=== PATIENT | male | born 1970 | race Caucasian/White ===

== ENCOUNTER 2017-07-14 01:40 | Emergency (ER) | payer BC, MEDICAID, OTHER ==
[2017-07-14 01:50] VITALS: BP 136/79
--- NOTE | 2017-07-14 02:17 | EDM.PDOC ---
ED HPI GENERAL MEDICAL PROBLEM - General Chief Complaint: Abdominal Pain Stated Complaint: RIGHT SIDE PAIN Time Seen by Provider: 07/14/17 02:00 Source of Information: Reports: Patient History Limitations: Reports: No Limitations - History of Present Illness INITIAL COMMENTS - FREE TEXT/NARRATIVE: This is a 46-year-old male. He comes tonight because he has some upper abdominal sharp pain. He states when he just lays there doesn't bother him at any time he uses abdominal muscles and hurts. He thinks he is got an appendix problem. He denies any nausea and vomiting he denies any diarrhea no fever no chills no other acute symptoms. He was doing abdominal exercises today and that' s when the pain seemed to start. His long as he is laying quietly he does not have any abdominal pain but associates starts using his abdominal muscles that' s when it seems to hurt. He also states that he has a little bump in that area and if you push on the bump it hurts as well. Treatments RO[facility] [employer]: Reports: Other (see below) Other Treatments RO[facility] [employer]ER: NAproxen Middle Abdomen Pain Score (Numeric/FACES): 8 - Related Data Allergies Allergy/AdvReac Type Severity Reaction Status Date / Time amitrittyline Allergy Nausea Uncoded 07/14/17 01:55 Home Meds: Home Meds Thyroid [[place] Thyroid] 30 mg PO DAILY 07/14/17 [History] Past Medical History - Past Health History Medical/Surgical History: Denies Medical/Surgical History Other HEENT History: wears eyeglasses Social & Family History - Family History Family Medical History: Noncontributory - Tobacco Use Smoking Status *Q: Current Every Day Smoker Years of Tobacco use: 33 Packs/Tins Daily: 0.1 Used Tobacco, but Quit: No Second Hand Smoke Exposure: Yes - Caffeine Use Caffeine Use: Reports: Coffee, Soda - Recreational Drug Use Recreational Drug Use: No - Living Situation & Occupation Living situation: Reports: Single, Other ED ROS GENERAL - Review of Systems Review Of Systems: See Below Constitutional: Denies: Fever, Chills HEENT: Reports: No Symptoms Respiratory: Reports: No Symptoms Cardiovascular: Reports: No Symptoms Endocrine: Reports: No Symptoms GI/Abdominal: Reports: Abdominal Pain. Denies: Diarrhea, Nausea, Vomiting : Reports: No Symptoms Musculoskeletal: Reports: No Symptoms Skin: Reports: No Symptoms Neurological: Reports: No Symptoms Psychiatric: Reports: No Symptoms Hematologic/Lymphatic: Reports: No Symptoms ED EXAM, GI/ABD - Physical Exam Exam: See Below Exam Limited By: No Limitations General Appearance: Alert, WD/WN, No Apparent Distress Eyes: Bilateral: Normal Appearance Ears: Normal External Exam Nose: Normal Inspection Throat/Mouth: Normal Inspection, Normal Lips, Normal Voice, No Airway Compromise Head: Normocephalic Neck: Supple Respiratory/Chest: No Respiratory Distress GI/Abdominal Exam: Soft, Other (Patient has no upper quadrant abdominal tenderness on palpation or lower abdominal tenderness, he has a negative McBurney's point, in the upper right rectus abdominis he has a little knot there that feels like a hernia, when I press on that not remove it around 3 has the sharp pain exactly) Back Exam: Full Range of Motion Extremities: Normal Inspection, Normal Range of Motion Neurological: Alert, Oriented Psychiatric: Normal Affect, Normal Mood Skin Exam: Warm, Dry Course - Vital Signs Last Recorded V/S: Last Vital Signs Temp 98.7 F 07/14/17 01:45 Pulse 71 07/14/17 01:45 Resp 18 07/14/17 01:45 BP 136/79 07/14/17 01:45 Pulse Ox 100 07/14/17 01:45 Departure - Departure Time of Disposition: 02:15 Disposition: Home, Self-Care 01 Condition: Good Clinical Impression: Abdominal hernia Qualifiers: Hernia type: unspecified Obstruction and gangrene presence: with obstruction but without gangrene Recurrence: non-recurrent Qualified Code(s): K46.0 - Unspecified abdominal hernia with obstruction, without gangrene - Discharge Information Referrals: Sintia Solomon NP [Primary Care Provider] - Mikey Clinton MD [Physician] - Fady Rojas MD [Physician] - Additional Instructions: Be very careful about doing any sort of straining or abdominal muscle activity since he can make the hernia worse, follow up with one of the 2 surgeons here in town for recheck and possible treatment of the hernia, if there is marked worsening of the pain especially when you're at rest and you have severe pain then seen the surgeon right away or return to the ER
== END 2017-07-14 02:20 | disposition home or self-care (01) ==
LOC: JD.ED 01:40
DX: K46.0 Unspecified abdominal hernia with obstruction, without gangrene (principal); F17.210 Nicotine dependence, cigarettes, uncomplicated; Z79.899 Other long term (current) drug therapy; Z88.8 Allergy status to other drugs, medicaments and biological substances
CPT/HCPCS: 99282; 99284

== ENCOUNTER 2017-08-21 12:19 | Day surgery (SDC) | payer MEDICAID ==
[~2017-08-21 12:19] MED LIST: Bupivacaine 0.5% 30 ML SDV ONE; Lidocaine 1% 50 ML MDV ONE
[2017-08-21] MEDS ORDERED: Sodium Chloride 0.9% 10 ML Syringe FLUSH PRN (12:24)
[2017-08-21] MEDS ORDERED: Lidocaine 1%/Sod Bicarbonate in NS 8.4% 1 ML Syringe IDERM PRN (12:24)
[2017-08-21] MEDS ORDERED: Propofol 200 MG/20 ML SDV ONE (12:27)
[2017-08-21] MEDS ORDERED: ceFAZolin 1 GM Vial ONE (12:27)
[2017-08-21] MEDS ORDERED: Ondansetron 4 MG/2 ML SDV ONE (12:27)
[2017-08-21] MEDS ORDERED: Lactated Ringers 1,000 ML IV SCH (12:30)
[2017-08-21] MEDS ORDERED: fentaNYL 250 MCG/5 ML SDV ONE (12:32)
[2017-08-21] MEDS ORDERED: Midazolam 1 MG/ML 2 ML SDV ONE (12:33)
--- NOTE | 2017-08-21 12:49 | PCM.PREANE ---
Preanesthetic Assessment - Anesthesia/Transfusion/Family Hx Anesthesia History: Prior Anesthesia Without Reaction Family History of Anesthesia Reaction: No Transfusion History: No Prior Transfusion(s) - Review of Systems General: No Symptoms Pulmonary: No Symptoms, Other (smoker) Cardiovascular: No Symptoms Gastrointestinal: No Symptoms Neurological: No Symptoms Other: Reports: Thyroid Problems (on replacement) - Physical Assessment NPO Status Date: 08/21/17 NPO Status Time: 09:30 (dr petty) Pulse: 58 O2 Sat by Pulse Oximetry: 98 Respiratory Rate: 16 Blood Pressure: 100/82 Weight: 94 kg ASA Class: 2 Mental Status: Alert & Oriented x3 Airway Class: Mallampati = 2 Dentition: Reports: Normal Dentition Thyro-Mental Finger Breadths: 3 Mouth Opening Finger Breadths: 3 ROM/Head Extension: Full Lungs: Clear to Auscultation, Normal Respiratory Effort Cardiovascular: Regular Rate, Regular Rhythm, No Murmurs - Allergies Allergies/Adverse Reactions: Allergies Allergy/AdvReac Type Severity Reaction Status Date / Time amitrittyline AdvReac Nausea Uncoded 08/21/17 12:29 - Blood Blood Available: No Product(s) Available: None - Anesthesia Plan Pre-Op Medication Ordered: None - Acknowledgements Anesthesia Type Planned: General Anesthesia Pt an Appropriate Candidate for the Planned Anesthesia: Yes Alternatives and Risks of Anesthesia Discussed w Pt/Guardian: Yes Pt/Guardian Understands and Agrees with Anesthesia Plan: Yes PreAnesthesia Questionnaire - Past Health History Medical/Surgical History: Denies Medical/Surgical History Other HEENT History: wears eyeglasses - SUBSTANCE USE Smoking Status *Q: Current Every Day Smoker Tobacco Use Within Last Twelve Months: Cigarettes Second Hand Smoke Exposure: Yes Recreational Drug Use History: No - HOME MEDS Home Medications: Home Meds Thyroid [[place] Thyroid] 30 mg PO DAILY 07/14/17 [History] - CURRENT (IN HOUSE) MEDS Current Meds: Current Medications Lactated Ringer's (Ringers, Lactated) 1,000 mls @ 125 mls/hr IV ASDIRECTED GEE Stop: 08/21/17 23:00 Lidocaine/Sodium Bicarbonate (Buffered Lidocaine 1% In Ns 8.4%) 0.25 ml IDERM ONETIME PRN PRN Reason: Prior to IV Start Stop: 08/21/17 18:00 Sodium Chloride (Saline Flush) 10 ml FLUSH ASDIRECTED PRN PRN Reason: Keep Vein Open Stop: 08/21/17 18:00 Discontinued Medications Bupivacaine HCl (Marcaine 0.5%) Confirm Administered Dose 30 ml .ROUTE .STK-MED ONE Stop: 08/21/17 12:12 Cefazolin Sodium (Ancef) Confirm Administered Dose 2 gm .ROUTE .STK-MED ONE Stop: 08/21/17 12:28 Fentanyl (Sublimaze) Confirm Administered Dose 250 mcg .ROUTE .STK-MED ONE Stop: 08/21/17 12:33 Lidocaine HCl (Xylocaine 1%) Confirm Administered Dose 50 ml .ROUTE .STK-MED ONE Stop: 08/21/17 12:12 Midazolam HCl (Versed 1 Mg/Ml) Confirm Administered Dose 2 mg .ROUTE .STK-MED ONE Stop: 08/21/17 12:34 Ondansetron HCl (Zofran) Confirm Administered Dose 4 mg .ROUTE .STK-MED ONE Stop: 08/21/17 12:28 Propofol (Diprivan 20 Ml) Confirm Administered Dose 200 mg .ROUTE .STK-MED ONE Stop: 08/21/17 12:28
--- NOTE | 2017-08-21 14:09 | PCM.OPNOTE ---
- General Post-Op/Procedure Note Date of Surgery/Procedure: 08/21/17 Operative Procedure(s): excision of lipoma rt abdominal wall Pre Op Diagnosis: incacerated rt abdominal wall hernia Post-Op Diagnosis: lipoma abdominal wall Anesthesia Technique: MAC Primary Surgeon: Fady Rojas EBL in mLs: 0 Complications: None Condition: Good
[2017-08-21] MEDS ORDERED: fentaNYL 100 MCG/2 ML SDV IVPUSH PRN (14:22)
[2017-08-21] MEDS ORDERED: Ondansetron 4 MG/2 ML SDV IVPUSH PRN (14:22)
--- NOTE | 2017-08-21 14:22 | PCM.POSTAN ---
POST ANESTHESIA ASSESSMENT - MENTAL STATUS Mental Status: Alert, Somnolent - VITAL SIGNS Pulse Rate: 54 SaO2: 100 Resp Rate: 8 Blood Pressure: 104/67 Temperature: 37 C - RESPIRATORY Respiratory Status: Respiratory Rate WNL, Airway Patent, O2 Saturation Stable, Supplemental Oxygen - CARDIOVASCULAR CV Status: Pulse Rate WNL, Blood Pressure Stable - GASTROINTESTINAL GI Status: No Symptoms - PAIN Pain Score: 0 - POST OP HYDRATION Hydration Status: Adequate & Stable
--- NOTE | 2017-08-21 14:33 | PCM48HPAN ---
Post Anesthesia Note - EVALUATION WITHIN 48HRS OF ANESTHETIC Vital Signs in Normal Range: Yes Patient Participated in Evaluation: Yes Respiratory Function Stable: Yes Airway Patent: Yes Cardiovascular Function Stable: Yes Hydration Status Stable: Yes Pain Control Satisfactory: Yes Nausea and Vomiting Control Satisfactory: Yes Mental Status Recovered: Yes Pulse Rate: 54 Resp Rate: 8 Temperature: 37 C Blood Pressure: 104/67
[2017-08-21 14:53] VITALS: BP 107/69
[2017-08-21] MEDS ORDERED: Acetaminophen/HYDROcodone 325-5 MG Tab PO PRN (14:57)
--- NOTE | 2017-08-21 15:02 | PCM.SURGPN ---
- General Info Date of Service: 08/21/17 Functional Status: Reports: Pain Controlled - Review of Systems Skin: Reports: Other (open wound left leg) - Patient Data Vitals - Most Recent: Last Vital Signs Temp 98.1 F 08/21/17 14:46 Pulse 50 L 08/21/17 14:46 Resp 14 08/21/17 14:46 BP 107/69 08/21/17 14:46 Pulse Ox 98 08/21/17 14:46 Weight - Most Recent: 93.894 kg I&O - Last 24 Hours: Intake & Output 08/20/17 08/21/17 08/21/17 23:59 07:59 15:59 Intake Total 500 Balance 500 Lab Results Last 24 Hrs: Laboratory Results - last 24 hr 08/21/17 08/21/17 08/21/17 Range/Units 12:37 12:37 13:05 WBC 8.04 (4.23-9.07) K/mm3 RBC 4.72 (4.63-6.08) M/mm3 Hgb 14.3 (13.7-17.5) gm/L Hct 42.0 (40.1-51.0) % MCV 89.0 (79.0-92.2) fl MCH 30.3 (25.7-32.2) pg MCHC 34.0 (32.2-35.5) g/dl RDW Std Deviation 42.9 (35.1-43.9) fL Plt Count 245 (163-337) K/mm3 MPV 10.1 (9.4-12.3) fl Neut % (Auto) 50.8 (34.0-67.9) % Lymph % (Auto) 32.5 (21.8-53.1) % [place] % (Auto) 8.7 (5.3-12.2) % Eos % (Auto) 6.3 (0.8-7.0) Baso % (Auto) 1.5 H (0.1-1.2) % Neut # (Auto) 4.08 (1.78-5.38) K/mm3 Lymph # (Auto) 2.61 (1.32-3.57) K/mm3 [place] # (Auto) 0.70 (0.30-0.82) K/mm3 Eos # (Auto) 0.51 (0.04-0.54) K/mm3 Baso # (Auto) 0.12 H (0.01-0.08) K/mm3 Sodium 141 (136-145) mEq/L Potassium 3.9 (3.5-5.1) mEq/L Chloride 105 (98-107) mEq/L Carbon Dioxide 27 (21-32) mEq/L Anion Gap 12.9 (5-15) TSH 3rd Generation 3.329 (0.358-3.74) uIU/mL MRSA (PCR) Negative Med Orders - Current: Current Medications Hydrocodone Bitart/Acetaminophen (Ada 325-5 Mg) 1 tab PO Q6H PRN PRN Reason: Pain Fentanyl (Sublimaze) 50 mcg IVPUSH Q5M PRN PRN Reason: pain Stop: 08/21/17 18:00 Lactated Ringer's (Ringers, Lactated) 1,000 mls @ 125 mls/hr IV ASDIRECTED GEE Stop: 08/21/17 23:00 Last Admin: 08/21/17 12:48 Dose: 125 mls/hr Lidocaine/Sodium Bicarbonate (Buffered Lidocaine 1% In Ns 8.4%) 0.25 ml IDERM ONETIME PRN PRN Reason: Prior to IV Start Stop: 08/21/17 18:00 Last Admin: 08/21/17 12:48 Dose: 0.25 ml Ondansetron HCl (Zofran) 4 mg IVPUSH ONETIME PRN PRN Reason: Nausea/Vomiting Stop: 08/21/17 18:00 Sodium Chloride (Saline Flush) 10 ml FLUSH ASDIRECTED PRN PRN Reason: Keep Vein Open Stop: 08/21/17 18:00 Discontinued Medications Bupivacaine HCl (Marcaine 0.5%) Confirm Administered Dose 30 ml .ROUTE .STK-MED ONE Stop: 08/21/17 12:12 Cefazolin Sodium (Ancef) Confirm Administered Dose 2 gm .ROUTE .STK-MED ONE Stop: 08/21/17 12:28 Fentanyl (Sublimaze) Confirm Administered Dose 250 mcg .ROUTE .STK-MED ONE Stop: 08/21/17 12:33 Lidocaine HCl (Xylocaine 1%) Confirm Administered Dose 50 ml .ROUTE .STK-MED ONE Stop: 08/21/17 12:12 Last Admin: 08/21/17 14:03 Dose: 10 ml Midazolam HCl (Versed 1 Mg/Ml) Confirm Administered Dose 2 mg .ROUTE .STK-MED ONE Stop: 08/21/17 12:34 Ondansetron HCl (Zofran) Confirm Administered Dose 4 mg .ROUTE .STK-MED ONE Stop: 08/21/17 12:28 Propofol (Diprivan 20 Ml) Confirm Administered Dose 200 mg .ROUTE .STK-MED ONE Stop: 08/21/17 12:28 - Exam Wound/Incisions: Healing Well Extremities: Other (erythem and pain much less in the left leg and tenderness is decreased minimal drainage. but necrosis is in the periostium over the anterior tibia area ) - Problem List Review Problem List Initiated/Reviewed/Updated: Yes - My Orders Last 24 Hours: Active Orders 24 hr Category Date Time Status Communication Order [RC] ROUTINE Care 08/21/17 14:22 Active Cooling Warming Measures [RC] ASDIRECTED Care 08/21/17 14:22 Active Notify Provider [RC] ASDIRECTED Care 08/21/17 14:22 Active Oxygen Therapy [RC] ASDIRECTED Care 08/21/17 14:22 Active Peripheral IV Care [RC] . DIRECTED Care 08/21/17 12:24 Active Pulse Oximetry [RC] ASDIRECTED Care 08/21/17 14:22 Active Ready for Discharge [RC] PER UNIT ROUTINE Care 08/21/17 14:10 Active Verify Patient Consent Obtain [RC] ASDIRECTED Care 08/21/17 12:24 Active Acetaminophen/HYDROcodone [Ada 325-5 MG] Med 08/21/17 14:57 Active 1 tab PO Q6H PRN Lactated Ringers [Ringers, Lactated] 1,000 ml Med 08/21/17 12:30 Active IV ASDIRECTED Lidocaine 1%/Sod Bicarbonate [Buffered Lidocaine 1% in Med 08/21/17 12:24 Active NS 8.4%] 0.25 ml IDERM ONETIME PRN Ondansetron [Zofran] Med 08/21/17 14:22 Active 4 mg IVPUSH ONETIME PRN Sodium Chloride 0.9% [Saline Flush] Med 08/21/17 12:24 Active 10 ml FLUSH ASDIRECTED PRN fentaNYL [Sublimaze] Med 08/21/17 14:22 Active 50 mcg IVPUSH Q5M PRN Medication Administration Instruction [OM.PC] Routine Oth 08/21/17 12:24 Ordered Peripheral IV Insertion Adult [OM.PC] Routine Oth 08/21/17 12:24 Ordered Medication Orders Hydrocodone Bitart/Acetaminophen (Ada 325-5 Mg) 1 tab PO Q6H PRN PRN Reason: Pain Fentanyl (Sublimaze) 50 mcg IVPUSH Q5M PRN PRN Reason: pain Stop: 08/21/17 18:00 Lactated Ringer's (Ringers, Lactated) 1,000 mls @ 125 mls/hr IV ASDIRECTED GEE Stop: 08/21/17 23:00 Last Admin: 08/21/17 12:48 Dose: 125 mls/hr Lidocaine/Sodium Bicarbonate (Buffered Lidocaine 1% In Ns 8.4%) 0.25 ml IDERM ONETIME PRN PRN Reason: Prior to IV Start Stop: 08/21/17 18:00 Last Admin: 08/21/17 12:48 Dose: 0.25 ml Ondansetron HCl (Zofran) 4 mg IVPUSH ONETIME PRN PRN Reason: Nausea/Vomiting Stop: 08/21/17 18:00 Sodium Chloride (Saline Flush) 10 ml FLUSH ASDIRECTED PRN PRN Reason: Keep Vein Open Stop: 08/21/17 18:00 - Plan Plan (Free Text/Narrative):: necrosis of the periostium of the left tibia plan will consult with ortho. ass pt improved
--- NOTE | 2017-08-22 07:55 | OR ---
DATE OF OPERATION: 08/21/2017 SURGEON: Fady Rojas MD PREOPERATIVE DIAGNOSIS: Abdominal wall hernia on the right. POSTOPERATIVE DIAGNOSIS: Abdominal lipoma. OPERATION PERFORMED: Excision of abdominal lipoma done under general anesthetic. FINDINGS: 2 cm lipoma. DESCRIPTION OF PROCEDURE: The patient taken to the operating room, placed in a supine position, given a general anesthetic, and given an LMA. Abdomen was clipped and prepped with DuraPrep, draped off in a sterile fashion. Incision was made just over the palpable lump, which was carried down through the skin, the dermis, into the fat, and lipoma was encountered and this was excised. Bleeding points were controlled with electrocautery. Careful evaluation did not show any defect in the fascia. The Karen's fascia was then brought together with interrupted 3-0 Vicryl suture and the skin with a running subdermal 4-0 Dexon suture. Steri- Strips and sterile dressing placed. The patient tolerated the procedure and sent to recovery room in a stable condition. ANESTHESIA: ESTIMATED BLOOD LOSS: MMODAL /[id number]
== END 2017-08-21 15:13 | disposition home or self-care (01) ==
LOC: JD.SDS 12:19 → EDSTATUS 13:30 → JD.SDS 15:13
PROVIDERS: ATTEND Surgery
DX: D17.1 Benign lipomatous neoplasm of skin and subcutaneous tissue of trunk (principal); L40.9 Psoriasis, unspecified; F17.210 Nicotine dependence, cigarettes, uncomplicated; Z79.899 Other long term (current) drug therapy; Z88.8 Allergy status to other drugs, medicaments and biological substances
CPT/HCPCS: 22902; 36415; 80051; 84443; 85025; 87641; A9270; J0690; J2250; J2405; J3010; J7120; J2704

== ENCOUNTER 2017-10-31 22:32 | Emergency (ER) | payer MEDICAID ==
[2017-10-31 22:41] VITALS: BP 132/93
--- NOTE | 2017-10-31 22:59 | EDM.PDOC ---
ED HPI GENERAL MEDICAL PROBLEM - General Chief Complaint: ENT Problem Stated Complaint: TOOTHACHE Time Seen by Provider: 10/31/17 22:43 Source of Information: Reports: Patient History Limitations: Reports: No Limitations - History of Present Illness INITIAL COMMENTS - FREE TEXT/NARRATIVE: The patient presents with right lower molar pain. This has been going on for a few days. She has no fever or chills. He has bad teeth but no dental insurance. Onset: Gradual Duration: Day(s): (2) Location: Reports: Face Quality: Reports: Sharp Severity: Severe Improves with: Reports: None Worsens with: Reports: None Associated Symptoms: Reports: No Other Symptoms Right Lower Tooth/Teeth Pain Score (Numeric/FACES): 10 - Related Data Allergies Allergy/AdvReac Type Severity Reaction Status Date / Time amitrittyline AdvReac Nausea Uncoded 08/21/17 12:29 Home Meds: Home Meds Thyroid [[place] Thyroid] 30 mg PO DAILY 07/14/17 [History] Hydrocodone/Acetaminophen [Hydrocodon-Acetaminophen 5-325] 1 - 2 each PO Q6HR PRN #20 tablet 10/31/17 [Rx] Hydrocodone/Acetaminophen [Hydrocodon-Acetaminophen 5-325] 1 - 2 each PO Q6HR PRN #5 tablet 10/31/17 [Rx] Penicillin V Potassium 500 mg PO Q6HR #40 tab 10/31/17 [Rx] Past Medical History - Past Health History Medical/Surgical History: Denies Medical/Surgical History Other HEENT History: wears eyeglasses Social & Family History - Family History Family Medical History: Noncontributory - Tobacco Use Smoking Status *Q: Current Every Day Smoker Years of Tobacco use: 34 Packs/Tins Daily: 0.2 - Caffeine Use Caffeine Use: Reports: Coffee - Recreational Drug Use Recreational Drug Use: No - Living Situation & Occupation Living situation: Reports: Single, Other ED ROS ENT - Review of Systems Review Of Systems: See Below Constitutional: Reports: Other (Dental pain) HEENT: Reports: No Symptoms Respiratory: Reports: No Symptoms Cardiovascular: Reports: No Symptoms Endocrine: Reports: No Symptoms GI/Abdominal: Reports: No Symptoms : Reports: No Symptoms ED EXAM, ENT - Physical Exam Exam: See Below Exam Limited By: No Limitations General Appearance: Alert, No Apparent Distress Ears: Normal External Exam Nose: Normal Inspection Mouth/Throat: Other (Right lower 2nd molar has erythema and edema with pain upon palpation) Head: Atraumatic, Normocephalic Neck: Normal Inspection Respiratory/Chest: No Respiratory Distress Course - Vital Signs Last Recorded V/S: Last Vital Signs Temp 97.6 F 10/31/17 22:37 Pulse 57 L 10/31/17 22:37 Resp 16 10/31/17 22:37 BP 132/93 H 10/31/17 22:37 Pulse Ox 100 10/31/17 22:37 - Re-Assessments/Exams Free Text/Narrative Re-Assessment/Exam: 10/31/17 22:57 I will give him a dose of penicillin and some hydrocodone. He does not have any money for the PharmMD. Departure - Departure Time of Disposition: 23:00 Disposition: Home, Self-Care 01 Condition: Good Clinical Impression: Dental abscess, Pain, dental - Discharge Information Prescriptions: Hydrocodone/Acetaminophen [Hydrocodon-Acetaminophen 5-325] 1 - 2 each PO Q6HR PRN #20 tablet PRN Reason: Pain Hydrocodone/Acetaminophen [Hydrocodon-Acetaminophen 5-325] 1 - 2 each PO Q6HR PRN #5 tablet PRN Reason: Pain Penicillin V Potassium 500 mg PO Q6HR #40 tab Referrals: Sintia Solomon, [employer] [Primary Care Provider] - Additional Instructions: Take the penicillin and hydrocodone as needed for pain. Follow up with a dentist. Please return if you are worse.
[2017-10-31] MEDS ORDERED: Penicillin V Potassium 500 MG Tab PO ONE (23:03)
[2017-10-31] MEDS ORDERED: Take Home: Acetaminophen/HYDROcodone 325-5 MG, 5 Tab Pack ONE (23:06)
== END 2017-10-31 23:11 | disposition home or self-care (01) ==
LOC: JD.ED 22:32
DX: K04.7 Periapical abscess without sinus (principal); F17.210 Nicotine dependence, cigarettes, uncomplicated; Z88.8 Allergy status to other drugs, medicaments and biological substances; Z79.899 Other long term (current) drug therapy
CPT/HCPCS: 99282; A9270; 99283

== ENCOUNTER 2017-12-12 22:45 | Emergency (ER) | payer MEDICAID ==
[2017-12-12 22:53] VITALS: BP 129/90
--- NOTE | 2017-12-13 00:11 | EDM.PDOC ---
ED HPI GENERAL MEDICAL PROBLEM - General Chief Complaint: ENT Problem Stated Complaint: TOOTHACHE Time Seen by Provider: 12/13/17 00:11 Source of Information: Reports: Patient History Limitations: Reports: No Limitations - History of Present Illness INITIAL COMMENTS - FREE TEXT/NARRATIVE: 47-year-old male presents to the ED with severe pain left lower molar tooth which is very badly decayed and has been for many months. He states started hurting 2 days ago. Constant throbbing pain unable to sleep tonight. He's been using Motrin [id number] with very little relief. Was seen in the clinic yesterday and started on a course of amoxicillin for dental infection but was not given any pain medication. He's been using topical cold oil and everything else that he can get his hands on to relieve the pain but nothing much works. No facial swelling. Patient has a right upper molar tooth that isn't very bad condition as well. States he's been unable to afford dental care. Onset: Gradual Onset Date: 12/10/17 Duration: Day(s): Location: Reports: Face (dental pain. Left lower molar. Left side of his face.) Quality: Reports: Ache, Pressure, Throbbing, Other (Pulsating pain at times) Severity: Severe (Rates the pain is related to 10) Improves with: Reports: None Worsens with: Reports: Other Context: Denies: Activity (Trying to chew or eat on that side), Exercise, Lifting, Sick Contact, Trauma, Other Associated Symptoms: Denies: No Other Symptoms, Confusion, Chest Pain, Cough, cough w sputum, Diaphoresis, Fever/Chills, Headaches, Loss of Appetite, Malaise , Nausea/Vomiting, Rash, Seizure, Shortness of Breath, Syncope, Weakness Treatments SENIOR DEVELOPER: Reports: NSAIDS (Motrin.) Oral/Mouth Pain Score (Numeric/FACES): 10 - Related Data Allergies Allergy/AdvReac Type Severity Reaction Status Date / Time amitriptyline Allergy Other Verified 12/12/17 22:53 Home Meds: Home Meds Thyroid [[place] Thyroid] 90 mg PO DAILY 07/14/17 [History] Cholecalciferol (Vitamin D3) [Vitamin D3] 5,000 unit PO DAILY 11/21/17 [History] Tacrolimus [Protopic] 1 applic TP BID 11/21/17 [History] oxyCODONE HCl/Acetaminophen [Percocet 5-325 mg Tablet] 1 - 2 each PO Q4H PRN # 20 tablet 12/13/17 [Rx] Past Medical History - Past Health History Medical/Surgical History: Denies Medical/Surgical History HEENT History: Reports: None Other HEENT History: wears eyeglasses Cardiovascular History: Reports: None Respiratory History: Reports: None Gastrointestinal History: Reports: None Genitourinary History: Reports: None Other Musculoskeletal History: Chronic left knee pain Neurological History: Reports: None Psychiatric History: Reports: None Endocrine/Metabolic History: Reports: Obesity/BMI 30+ Hematologic History: Reports: None Immunologic History: Reports: None Oncologic (Cancer) History: Reports: None Dermatologic History: Reports: Psoriasis - Past Surgical History Head Surgeries/Procedures: Reports: None HEENT Surgical History: Reports: None Cardiovascular Surgical History: Reports: None Respiratory Surgical History: Reports: None GI Surgical History: Reports: None Male Surgical History: Reports: None Endocrine Surgical History: Reports: None Neurological Surgical History: Reports: None Musculoskeletal Surgical History: Reports: None Oncologic Surgical History: Reports: None Social & Family History - Family History Family Medical History: Noncontributory - Tobacco Use Smoking Status *Q: Current Every Day Smoker Years of Tobacco use: 34 Packs/Tins Daily: 1 - Caffeine Use Caffeine Use: Reports: None - Recreational Drug Use Recreational Drug Use: No - Living Situation & Occupation Living situation: Reports: Single, Other ED ROS ENT - Review of Systems Review Of Systems: See Below Constitutional: Reports: Fatigue (From not being able to sleep.), Decreased Appetite. Denies: Fever, Chills, Malaise, Weakness, Weight Loss HEENT: Reports: Dental Pain (Severe dental pain left lower molar. He recognizes the tooth is been badly decayed for many months/years.) Respiratory: Reports: Cough, Sputum (Occasional cough related to cigarette smoking usually brown in color.) Cardiovascular: Reports: No Symptoms. Denies: Chest Pain, Blood Pressure Problem, Claudication Endocrine: Reports: Fatigue GI/Abdominal: Reports: Decreased Appetite : Reports: No Symptoms Musculoskeletal: Reports: No Symptoms Skin: Reports: No Symptoms Neurological: Reports: No Symptoms Psychiatric: Reports: No Symptoms Hematologic/Lymphatic: Reports: No Symptoms Immunologic: Reports: No Symptoms ED EXAM, ENT - Physical Exam Exam: See Below Exam Limited By: No Limitations General Appearance: Alert, WD/WN, Mild Distress (Appears to be in genuine discomfort.) Eye Exam: Bilateral Eye: Normal Inspection Mouth/Throat: Dental Abcess (Left lower molar second molar tooth is in very bad condition 45% of the tooth is absent with a deep hole in the center of the tooth involving full-thickness pulp space. Surrounding gingiva is swollen. There is a similar very badly decayed right upper second molar tooth as well.) Head: Atraumatic, Normocephalic, Facial Tenderness (Over the left mandible. No facial cellulitis) Neck: Normal Inspection, Supple, Non-Tender, Full Range of Motion. No: Lymphadenopathy (L), Lymphadenopathy (R) Respiratory/Chest: No Respiratory Distress, Lungs Clear, Normal Breath Sounds Course - Vital Signs Last Recorded V/S: Last Vital Signs Temp 37.0 C 12/12/17 22:49 Pulse 71 12/12/17 22:49 Resp 18 12/12/17 22:49 BP 129/90 12/12/17 22:49 Pulse Ox 99 12/12/17 22:49 - Orders/Labs/Meds Meds: Medications Discontinued Medications Generic Name Dose Route Start Last Admin Trade Name Freq PRN Reason Stop Dose Admin Cephalexin 1,000 mg 12/13/17 00:18 12/13/17 00:44 Keflex PO 12/13/17 00:19 1,000 mg ONETIME ONE Administration Oxycodone/Acetaminophen 2 tab 12/13/17 00:19 12/13/17 00:44 Percocet 325-5 Mg PO 12/13/17 00:20 2 tab ONETIME ONE Administration - Radiology Interpretation Free Text/Narrative:: 47-year-old male presents to the ED with severe pain left lower molar tooth. Been going on for 2 days and is getting worse. He is currently on a course of amoxicillin started at the clinic yesterday but nothing much for pain other than Motrin and close well. Unable to sleep tonight due to the severity of the pain. It is described as constant throbbing pulsating pain. Examination confirms a severely decayed left lower second molar tooth. Dental abscesses evident. Plan he will continue the amoxicillin. I did give him cephalexin 1 g by mouth. Percocet 2 tablets 5/3/25 milligram strength in the ED. Prescription written for Percocet 5/3/25 milligram tablets for pain relief 2 tablets every 4- 6 hours as needed for the next 3 days. 16 tablet provided in all Departure - Departure Time of Disposition: 00:32 Disposition: Home, Self-Care 01 Condition: Fair Clinical Impression: Dental abscess - Discharge Information Prescriptions: oxyCODONE HCl/Acetaminophen [Percocet 5-325 mg Tablet] 1 - 2 each PO Q4H PRN # 20 tablet PRN Reason: pain relief. Referrals: Sintia Solomon SERVOMECHANISM DESIGNER [Primary Care Provider] - Forms: ED Department Discharge Additional Instructions: Evaluation the emergency room tonight in regards to severe dental pain left molar tooth. Left lower second molar tooth is in very bad condition with over 45 % of the tooth decay did destroyed. There is no doubt there is a dental infection or dental abscess in this tooth. He is going to need to be extracted. You have already started oral antibiotics and you're to continue the amoxicillin as prescribed. I gave you a booster dose of antibiotic tonight while in the ED cephalexin 1 g by mouth. Percocet 5/3/25 milligrams tabs 2 tablets were given in the ED and you are to fill a prescription later this morning for same medication 2 tablets every 4-6 hours as needed. Continue either ibuprofen 600 mg every 6 hours to reduce pain and inflammation or Aleve 2 tablets every 8 hours to relieve pain and inflammation as well. Expect improvement over the next 48-72 hours once the antibiotic to become effective. Of course follow-up with Dentist when able.
[2017-12-13] MEDS ORDERED: Cephalexin 500 MG Cap PO ONE (00:18)
[2017-12-13] MEDS ORDERED: Acetaminophen/oxyCODONE 325-5 MG Tab PO ONE (00:19)
== END 2017-12-13 00:46 | disposition home or self-care (01) ==
LOC: JD.ED 22:45
DX: K04.7 Periapical abscess without sinus (principal); F17.210 Nicotine dependence, cigarettes, uncomplicated; Z88.8 Allergy status to other drugs, medicaments and biological substances; Z79.899 Other long term (current) drug therapy
CPT/HCPCS: 99283; A9270

== ENCOUNTER 2018-08-25 06:12 | Day surgery (SDC) | payer MEDICAID ==
--- NOTE | 2018-08-22 10:42 | PCM.PREANE ---
Preanesthetic Assessment - Anesthesia/Transfusion/Family Hx Anesthesia History: Prior Anesthesia Without Reaction Family History of Anesthesia Reaction: No Transfusion History: No Prior Transfusion(s) Intubation History: Unknown - Review of Systems General: No Symptoms Pulmonary: No Symptoms (Smoker:quit smoking 2018 ETOH: occasional) Cardiovascular: No Symptoms Gastrointestinal: No Symptoms Neurological: Headache (Migraines: on topamax and imitrex) Other: Reports: Thyroid Problems (Hypothyroid) - Physical Assessment NPO Status Date: 08/24/18 NPO Status Time: 22:00 Pulse: 67 O2 Sat by Pulse Oximetry: 100 Respiratory Rate: 16 Blood Pressure: 111/79 Temperature: 36.7 C Height: 1.93 m Weight: 91 kg ASA Class: 2 Mental Status: Alert & Oriented x3 Airway Class: Mallampati = 2 Dentition: Reports: Normal Dentition, Caries Thyro-Mental Finger Breadths: 3 Mouth Opening Finger Breadths: 3 ROM/Head Extension: Full Lungs: Clear to Auscultation, Normal Respiratory Effort Cardiovascular: Regular Rate, Regular Rhythm, No Murmurs - Lab Values: Laboratory Last Values MRSA (PCR) Negative 08/21/18 11:47 All lab values reviewed and noted and within acceptable ranges to proceed with scheduled procedure. - Imaging/EKG Impressions: EKG: SB rate=56 EKG: negative - Allergies Allergies/Adverse Reactions: Allergies Allergy/AdvReac Type Severity Reaction Status Date / Time amitriptyline AdvReac Other Verified 08/24/18 11:15 - Anesthesia Plan Pre-Op Medication Ordered: Other (pre-op meds: lyrica, oxycodone, tylenol at 0645) - Acknowledgements Anesthesia Type Planned: Spinal (With a left adductor canal block under US guidance for post operative pain control requested by Dr. Vasquez.) Pt an Appropriate Candidate for the Planned Anesthesia: Yes Alternatives and Risks of Anesthesia Discussed w Pt/Guardian: Yes Pt/Guardian Understands and Agrees with Anesthesia Plan: Yes PreAnesthesia Questionnaire - Past Health History Medical/Surgical History: Denies Medical/Surgical History HEENT History: Reports: None Other HEENT History: wears eyeglasses Cardiovascular History: Reports: None Respiratory History: Reports: None Gastrointestinal History: Reports: None Genitourinary History: Reports: None Other Musculoskeletal History: Chronic left knee pain Neurological History: Reports: None Psychiatric History: Reports: None Endocrine/Metabolic History: Reports: Obesity/BMI 30+ Hematologic History: Reports: None Immunologic History: Reports: None Oncologic (Cancer) History: Reports: None Dermatologic History: Reports: Psoriasis - Past Surgical History Head Surgeries/Procedures: Reports: None HEENT Surgical History: Reports: None Cardiovascular Surgical History: Reports: None Respiratory Surgical History: Reports: None GI Surgical History: Reports: None Male Surgical History: Reports: None Endocrine Surgical History: Reports: None Neurological Surgical History: Reports: None Musculoskeletal Surgical History: Reports: None Oncologic Surgical History: Reports: None - HOME MEDS Home Medications: Home Meds Cholecalciferol (Vitamin D3) [Vitamin D3] 5,000 unit PO DAILY 11/21/17 [History] Tacrolimus [Protopic] 1 applic TP TID 11/21/17 [History] Clobetasol Propionate [Temovate 0.05% Oint] 1 dose TOP BID PRN 08/24/18 [History ] Clobetasol Propionate/Emoll [Olux-E 0.05% Foam] 1 dose TOP BID PRN 08/24/18 [ History] Levothyroxine 150 mg PO DAILY 08/24/18 [History] SUMAtriptan Succinate [Imitrex] 100 mg PO ASDIRECTED PRN 08/24/18 [History] Topiramate [Topamax] 50 mg PO BEDTIME 08/24/18 [History] - CURRENT (IN HOUSE) MEDS Current Meds: Current Medications Acetaminophen (Tylenol) 975 mg PO ONETIME GEE Stop: 08/25/18 16:00 Lactated Ringer's (Ringers, Lactated) 1,000 mls @ 125 mls/hr IV ASDIRECTED GEE Stop: 08/25/18 23:00 Lidocaine/Sodium Bicarbonate (Buffered Lidocaine 1% In Ns 8.4%) 0.25 ml IDERM ONETIME PRN PRN Reason: Prior to IV Start Stop: 08/25/18 18:00 Oxycodone HCl (Oxycontin) 10 mg PO ONETIME GEE Stop: 08/25/18 16:00 Pregabalin (Lyrica) 50 mg PO ONETIME GEE Stop: 08/25/18 16:00 Sodium Chloride (Saline Flush) 10 ml FLUSH ASDIRECTED PRN PRN Reason: Keep Vein Open Stop: 08/25/18 18:00
[~2018-08-25 06:12] MED LIST changes: +Acetaminophen 325 MG Tab PO SCH; -Bupivacaine 0.5% 30 ML SDV ONE; +Lactated Ringers 1,000 ML IV SCH; -Lidocaine 1% 50 ML MDV ONE; +Lidocaine 1%/Sod Bicarbonate in NS 8.4% 1 ML Syringe IDERM PRN; +Pregabalin 25 MG Cap PO SCH; +Sodium Chloride 0.9% 10 ML Syringe FLUSH PRN; +oxyCODONE ER 10 MG TAB.ER PO SCH
[2018-08-25] MEDS ORDERED: Ketorolac 30 MG/ML SDV ONE (06:15)
[2018-08-25] MEDS ORDERED: Lidocaine 1% 14 ML ONE (06:15)
[2018-08-25] MEDS ORDERED: Ondansetron 4 MG/2 ML SDV ONE (06:15)
[2018-08-25] MEDS ORDERED: Phenylephrine/Normal Saline 100 MCG/ML 10 ML Syringe ONE (06:15)
[2018-08-25] MEDS ORDERED: Propofol 200 MG/20 ML SDV ONE (06:15)
[2018-08-25] MEDS ORDERED: Lactated Ringers 1,000 ML ONE ×2 (06:15→07:21)
[2018-08-25] MEDS ORDERED: ceFAZolin 1 GM Vial ONE ×2 (06:15→06:23)
[2018-08-25] MEDS ORDERED: fentaNYL 100 MCG/2 ML SDV ONE (06:16)
[2018-08-25] MEDS ORDERED: Midazolam 1 MG/ML 2 ML SDV ONE (06:16)
[2018-08-25] MEDS ORDERED: Ketamine 500 mg/10 ML MDV ONE (06:17)
[2018-08-25] MEDS ORDERED: Ropivacaine 0.5% 5 MG/ML 30 ML SDV ONE (06:21)
[2018-08-25] MEDS ORDERED: EPINEPHrine 1 MG/ML SDV ONE (06:21)
[2018-08-25] MEDS ORDERED: Iodine/Sodium Iodide 2% Tincture 30 ML Bottle ONE (06:23)
[2018-08-25] MEDS ORDERED: Bupivacaine 0.25% 30 ML SDV ONE (06:24)
[2018-08-25] MEDS ORDERED: Acetaminophen 325 MG Tab PO SCH (06:33)
[2018-08-25] MEDS ORDERED: Pregabalin 75 MG Cap PO SCH (06:35)
[2018-08-25] MEDS ORDERED: oxyCODONE ER 10 MG TAB.ER PO SCH (06:35)
[2018-08-25] MEDS ORDERED: Pregabalin 25 MG Cap ONE (06:42)
[2018-08-25] MEDS ORDERED: Bupivacaine 0.75% 30 ML SDV ONE (07:01)
[2018-08-25] MEDS ORDERED: Morphine 2 MG/ML Syringe IVPUSH PRN (07:08)
[2018-08-25] MEDS ORDERED: Cyclobenzaprine 10 MG Tab PO PRN (07:08)
[2018-08-25] MEDS ORDERED: Ondansetron 4 MG/2 ML SDV IVPUSH PRN ×2 (07:08→07:31)
[2018-08-25] MEDS ORDERED: Bisacodyl 5 MG Tab PO PRN (07:08)
[2018-08-25] MEDS ORDERED: Magnesium Hydroxide 400 MG/5 ML Susp 30 ML Cup PO PRN (07:08)
[2018-08-25] MEDS ORDERED: Ketorolac 15 MG/ML SDV IVPUSH PRN (07:08)
[2018-08-25] MEDS ORDERED: Acetaminophen/oxyCODONE 325-5 MG Tab PO PRN (07:08)
[2018-08-25] MEDS ORDERED: Naloxone 0.4 MG/ML SDV IVPUSH PRN (07:08)
[2018-08-25] MEDS ORDERED: Sennosides 8.6 MG Tab PO PRN (07:08)
[2018-08-25] MEDS ORDERED: fentaNYL 100 MCG/2 ML SDV IVPUSH PRN (07:31)
[2018-08-25] MEDS ORDERED: ePHEDrine 50 MG/ML SDV IVPUSH PRN (07:31)
[2018-08-25] MEDS ORDERED: diphenhydrAMINE 50 MG/ML SDV IVPUSH PRN (07:31)
[2018-08-25] MEDS ORDERED: HYDROmorphone 0.5 MG/0.5 ML Syringe IVPUSH PRN (07:31)
[2018-08-25] MEDS ORDERED: Phenylephrine 1 MG in Sodium Chloride 0.9% 10 ML IV SCH (07:45)
[2018-08-25] MEDS: Morphine 8 MG, EPINEPHrine 0.3 MG, Cefuroxime 750 MG, Ketorolac 30 MG, Sodium Chloride ... ONE ×10 (08:12→08:13)
[2018-08-25] MEDS: Vancomycin 1 GM SDV ONE ×2 (08:16→08:25)
--- NOTE | 2018-08-25 08:55 | PCM.POSTAN ---
POST ANESTHESIA ASSESSMENT - MENTAL STATUS Mental Status: Alert - VITAL SIGNS Pulse Rate: 61 SaO2: 97 Resp Rate: 11 Blood Pressure: 98/62 Temperature: 36.6 C - RESPIRATORY Respiratory Status: Respiratory Rate WNL, Airway Patent, O2 Saturation Stable - CARDIOVASCULAR CV Status: Pulse Rate WNL, Blood Pressure Stable - GASTROINTESTINAL GI Status: No Symptoms - POST OP HYDRATION Hydration Status: Adequate & Stable
--- NOTE | 2018-08-25 09:15 | PCM.SN ---
- Free Text/Narrative Note: Left selective femoral nerve block at the adductor canal for post-procedure pain control under US guidance requested by Dr. Vasquez. Time Out: 856 Start: 856 End: 906 Chart reviewed. Consent signed. Questions answered. Appropriate monitors applied. Time out performed. Left mid-shaft femur identified with ultrasound, scanning medially of femur, the femoral artery in the adductor canal visualized , and the femoral nerve located laterally to the artery. The skin was prepped lateral to the ultrasound probe with chlorahexadine times two. The 21ga 4 insulated block needle was inserted under direct ultrasound guidance into the adductor canal. 25mL of 0.5% ropivacaine with 1:200,000 epinephrine was injected circumferentially around the nerve with intermittent negative aspiration noted. Patient tolerated the procedure well. Sterile technique noted along with sterile gloves, mask, and sterile probe cover. See picture on progress note and vital signs on nurses notes. Block completed in PACU. Amita Dejesus CRNA
--- NOTE | 2018-08-25 09:45 | CR ---
Left knee: AP and lateral views of the left knee were obtained. Comparison: Prior left knee study of 02/12/10. Prosthesis is noted within the patellofemoral joint. Medial and lateral joint compartments are maintained in height. Small amount of soft tissue air is noted from the surgical procedure. Nothing acute is otherwise seen. Impression: 1. Previous surgery within the patellofemoral joint. Diagnostic code #2
--- NOTE | 2018-08-25 12:49 | PCM48HPAN ---
Post Anesthesia Note - EVALUATION WITHIN 48HRS OF ANESTHETIC Vital Signs in Normal Range: Yes Patient Participated in Evaluation: Yes Respiratory Function Stable: Yes Airway Patent: Yes Cardiovascular Function Stable: Yes Hydration Status Stable: Yes Pain Control Satisfactory: Yes Nausea and Vomiting Control Satisfactory: Yes Mental Status Recovered: Yes
--- NOTE | 2018-08-25 13:37 | PCM.OPNOTE ---
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
[2018-08-25 14:27] VITALS: BP 99/67
[2018-08-25] MEDS ORDERED: ceFAZolin 2 GM in Premix Bag 1 BAG IV SCH (14:30)
--- NOTE | 2018-08-25 14:40 | OR ---
DATE OF OPERATION: 08/25/2018 SURGEON: Gary Vasquez MD OPERATION PERFORMED: Left patellofemoral arthroplasty. PREOPERATIVE DIAGNOSIS: Left knee patellar osteoarthrosis. POSTOPERATIVE DIAGNOSIS: Left knee patellar osteoarthrosis. ANESTHESIA: Local MAC with spinal. ANESTHESIA PROVIDER: Amita Dejesus CRNA ASSISTANTS: Kate Spencer PA-C and Flori Ibrahim LPN. ESTIMATED BLOOD LOSS: 5 mL. COMPLICATIONS: None. CONDITION: Stable. IMPLANTS: 1. Ramos size 4 femoral PFJ component. 2. Ramos size 38 x 9.5 mm patella. DESCRIPTION OF PROCEDURE: The patient was identified in the preop holding area. The proper site was marked and identified by the surgeon. The patient was taken back to the operating theater, where after adequate anesthesia, the patient's left lower extremity had a nonsterile tourniquet applied and was sterilely prepped and draped in the usual sterile fashion. OR time-out was performed. The patient received 2 g IV Ancef. At this time, the left lower extremity was exsanguinated and tourniquet was insufflated to 250 mmHg. At this time, a standard skin incision was made for a medial parapatellar approach. Medial parapatellar arthrotomy was then created, but it was made sure not to bring it down onto the cartilage as there was expected patellofemoral arthroplasty, we made sure to protect the inner meniscal ligament as well. At this time, it was noted the patient had significant degenerative change of the patellofemoral joint, but the medial and lateral compartment showed no signs of chondromalacia, wear, or meniscal tears. At this time, it was decided we do a patellofemoral arthroplasty. The patella measured a 28 and resected to a 17 for 38 x 9.5 patella. The drill holes were then drilled and found to be adequate. Partial lateral facetectomy was done at this time. At this time, attention was turned to the femur. A drill hole was placed in the distal femur, intramedullary distal femoral anterior cutting guide for the Ramos jig was then placed and the stylet was brought down to the midportion of the femur and rotation was set for external rotation, and the resection was then carried out. It was found to be an adequate resection with a good flat cut. At this time, the foot for the mill was then placed and was found to be a size 4. This was then pinned into place and first the central mill was done, the lateral and then the medial mill, and was found to have an adequate resection for the component. At this time, the 2nd cutting jig was placed for the distal femur for the intramedullary portion. This was then drilled in place and found to be adequate. A trial was placed for a size 4. It was found to be seated with no overhang over the cartilaginous surface and it was sitting flush with the cartilaginous surface on both the medial and lateral femoral condyles. The patella was tracking centrally. There were no signs of instability. At this time, cement was mixed on the back table. All the cut surfaces were irrigated with pulse lavage irrigation with Ancef. Once it had set up, the size 4 Ramos femoral component for a PFJ was cemented into place and the 38 x 9.5 mm patella was then cemented into place. At this time, 3 L of pulse lavage irrigation with Ancef were irrigated through the knee. Once the cement had cured, a #2 barbed suture was used for closure of the medial parapatellar arthrotomy, 2-0 Vicryl was used subcutaneously, and Prineo was used for the skin. The patient tolerated the procedure well, was sent to PACU in stable condition. MAXIM /[id number]
[2018-08-25] MEDS ORDERED: Famotidine 20 MG Tab PO SCH (21:00)
[2018-08-25] MEDS ORDERED: Docusate Sodium 100 MG Cap PO SCH (21:00)
[2018-08-26] MEDS ORDERED: Aspirin 325 MG Tab.EC PO SCH (09:00)
== END 2018-08-25 15:20 | disposition home or self-care (01) ==
LOC: JD.SDS 06:12 → JD.MS 09:35 → JD.SDS 15:20
PROVIDERS: ATTEND Orthopaedic Surgery
DX: M17.12 Unilateral primary osteoarthritis, left knee (principal); E03.9 Hypothyroidism, unspecified; N20.0 Calculus of kidney; K46.9 Unspecified abdominal hernia without obstruction or gangrene; G89.18 Other acute postprocedural pain; Z88.8 Allergy status to other drugs, medicaments and biological substances; Z87.891 Personal history of nicotine dependence; Z79.899 Other long term (current) drug therapy
CPT/HCPCS: 27442; 64447; 73560; 87641; 97110; 97116; 97161; 97165; A9270; J0171; J0690; J0697; J1885; J2001; J2250; J2270; J2405; J2704; J2795; J3010; J3370; J3490; J7120; 01392; 64450; J2370

== ENCOUNTER 2018-08-30 20:09 | Emergency (ER) | payer MEDICAID ==
[2018-08-30 20:18] VITALS: BP 137/88
--- NOTE | 2018-08-30 23:34 | EDM.PDOC ---
ED HPI GENERAL MEDICAL PROBLEM - General Chief Complaint: Lower Extremity Injury/Pain Stated Complaint: [facility] Time Seen by Provider: 08/30/18 20:15 Source of Information: Reports: Patient History Limitations: Reports: No Limitations - History of Present Illness INITIAL COMMENTS - FREE TEXT/NARRATIVE: This is a 48-year-old male. He had on 25 August left knee surgery where they replaced part of the distal femur underneath the kneecap. Been trying to do his exercises at home and they have been very difficult and painful. He states that today he noted increased swelling of his left knee and some warmth to the left knee. Due to the increased swelling there seems to be increased pain and he comes to the ER for evaluation. He says he been feeling hot and cold but the highest his temperature is gone was 99.9. He is wearing tight stockings. The dressing over the incision is intact and does not appear to be bloodstained. He is to see the orthopedist mid-level this coming week. He is concerned because of the swelling up into his thigh. He denies any shortness of breath he denies any other acute symptoms. Left Knee Pain Score (Numeric/FACES): 8 - Related Data Allergies Allergy/AdvReac Type Severity Reaction Status Date / Time amitriptyline AdvReac Other Verified 08/30/18 20:18 Home Meds: Home Meds Cholecalciferol (Vitamin D3) [Vitamin D3] 5,000 unit PO DAILY 11/21/17 [History] Tacrolimus [Protopic] 1 applic TP TID 11/21/17 [History] Clobetasol Propionate [Temovate 0.05% Oint] 1 dose TOP BID PRN 08/24/18 [History ] Clobetasol Propionate/Emoll [Olux-E 0.05% Foam] 1 dose TOP BID PRN 08/24/18 [ History] Levothyroxine 150 mg PO DAILY 08/24/18 [History] SUMAtriptan Succinate [Imitrex] 100 mg PO ASDIRECTED PRN 08/24/18 [History] Topiramate [Topamax] 50 mg PO BEDTIME 08/24/18 [History] Acetaminophen/oxyCODONE [Percocet 325-5 MG] 1 - 2 tab PO Q6H PRN #60 tablet 10/10 [Rx] Aspirin [Ecotrin] 325 mg PO BID #84 tab.ec 08/25/18 [Rx] Bisacodyl [Dulcolax] 5 mg PO DAILY PRN tablet 08/25/18 [Rx] Cyclobenzaprine [Flexeril] 10 mg PO TID PRN #40 tablet 08/25/18 [Rx] Docusate Sodium [Colace] 100 mg PO BID cap 08/25/18 [Rx] Famotidine [Pepcid] 20 mg PO Q12H tablet 08/25/18 [Rx] Magnesium Hydroxide [Milk of Magnesia] 30 ml PO BID PRN cup 08/25/18 [Rx] Sennosides [Senna] 8.6 mg PO BID PRN tablet 08/25/18 [Rx] Past Medical History - Past Health History Medical/Surgical History: Denies Medical/Surgical History HEENT History: Reports: None Other HEENT History: wears eyeglasses Cardiovascular History: Reports: None Respiratory History: Reports: None Gastrointestinal History: Reports: None Genitourinary History: Reports: None 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 Other Musculoskeletal History: Chronic left knee pain Neurological History: Reports: None Psychiatric History: Reports: None Endocrine/Metabolic History: Reports: Obesity/BMI 30+ Hematologic History: Reports: None Immunologic History: Reports: None Oncologic (Cancer) History: Reports: None Dermatologic History: Reports: Psoriasis - Past Surgical History Head Surgeries/Procedures: Reports: None HEENT Surgical History: Reports: None Cardiovascular Surgical History: Reports: None Respiratory Surgical History: Reports: None GI Surgical History: Reports: None Male Surgical History: Reports: None Endocrine Surgical History: Reports: None Neurological Surgical History: Reports: None Musculoskeletal Surgical History: Reports: None Oncologic Surgical History: Reports: None Social & Family History - Family History Family Medical History: Noncontributory - Tobacco Use Smoking Status *Q: Former Smoker Used Tobacco, but Quit: Yes Month/Year Tobacco Last Used: 2017 - Caffeine Use Caffeine Use: Reports: Soda - Recreational Drug Use Recreational Drug Use: No - Living Situation & Occupation Living situation: Reports: Single, Other Review of Systems - Review of Systems Review Of Systems: See Below Constitutional: Reports: Chills Eyes: Reports: No Symptoms Ears: Reports: No Symptoms Nose: Reports: No Symptoms Mouth/Throat: Reports: No Symptoms Respiratory: Reports: No Symptoms Cardiovascular: Reports: No Symptoms GI/Abdominal: Reports: No Symptoms Genitourinary: Reports: No Symptoms Musculoskeletal: Reports: Other (As per history of present illness) Skin: Reports: Other (As per history of present illness) Neurological: Reports: No Symptoms Psychiatric: Reports: No Symptoms ED EXAM, GENERAL - Physical Exam Exam: See Below Exam Limited By: No Limitations General Appearance: Alert, WD/WN, No Apparent Distress Eye Exam: Bilateral Eye: Normal Inspection Ears: Normal External Exam Nose: Normal Inspection Throat/Mouth: Normal Lips, Normal Voice, No Airway Compromise Head: Normocephalic Neck: Supple Respiratory/Chest: No Respiratory Distress, Lungs Clear, Normal Breath Sounds Cardiovascular: Regular Rate, Rhythm, No Murmur Back Exam: Decreased Range of Motion Extremities: Other (The left lower extremity has support stockings noted, the knee itself does appear to be slightly swollen and slight warmth differential noted but no erythema, the left thigh appears to be slightly swollen compared to the right, he has limited range of motion of that left knee despite him stating that he is doing his exercises, he does have pedal pulses noted and sensation is intact distally in the left foot, he does have a large bruising area on the lateral thigh noted) Neurological: Alert, Oriented Psychiatric: Normal Affect, Normal Mood Skin Exam: Warm, Dry Course - Vital Signs Last Recorded V/S: Last Vital Signs Temp 98.6 F 08/30/18 20:14 Pulse 79 08/30/18 20:14 Resp 16 08/30/18 20:14 BP 137/88 08/30/18 20:14 Pulse Ox 98 08/30/18 20:14 - Orders/Labs/Meds Orders: Active Orders 24 hr Category Date Time Status Knee 1V or 2V Lt [CR] Stat Exams 08/30/18 22:48 Taken VL Duplex Lwr Ext Veins Ltd Lt [US] Stat Exams 08/30/18 20:43 Taken Labs: Laboratory Tests 08/30/18 08/30/18 Range/Units 20:54 20:54 WBC 9.10 H (4.23-9.07) K/mm3 RBC 4.27 L (4.63-6.08) M/mm3 Hgb 13.0 L (13.7-17.5) gm/L Hct 38.2 L (40.1-51.0) % MCV 89.5 (79.0-92.2) fl MCH 30.4 (25.7-32.2) pg MCHC 34.0 (32.2-35.5) g/dl RDW Std Deviation 40.6 (35.1-43.9) fL Plt Count 282 (163-337) K/mm3 MPV 9.3 L (9.4-12.3) fl Neut % (Auto) 74.3 H (34.0-67.9) % Lymph % (Auto) 14.1 L (21.8-53.1) % [place] % (Auto) 6.5 (5.3-12.2) % Eos % (Auto) 4.2 (0.8-7.0) Baso % (Auto) 0.7 (0.1-1.2) % Neut # (Auto) 6.77 H (1.78-5.38) K/mm3 Lymph # (Auto) 1.28 L (1.32-3.57) K/mm3 [place] # (Auto) 0.59 (0.30-0.82) K/mm3 Eos # (Auto) 0.38 (0.04-0.54) K/mm3 Baso # (Auto) 0.06 (0.01-0.08) K/mm3 Sodium 139 (136-145) mEq/L Potassium 3.8 (3.5-5.1) mEq/L Chloride 103 (98-107) mEq/L Carbon Dioxide 27 (21-32) mEq/L Anion Gap 12.8 (5-15) BUN 23 H (7-18) mg/dL Creatinine 1.1 (0.7-1.3) mg/dL Est Cr Clr Drug Dosing 103.02 mL/min Estimated GFR (MDRD) > 60 (>60) mL/min BUN/Creatinine Ratio 20.9 H (14-18) Glucose 123 H (74-106) mg/dL Calcium 9.3 (8.5-10.1) mg/dL Total Bilirubin 0.5 (0.2-1.0) mg/dL AST 18 (15-37) U/L ALT 20 (16-63) U/L Alkaline Phosphatase 82 (46-116) U/L Total Protein 7.4 (6.4-8.2) g/dl Albumin 3.2 L (3.4-5.0) g/dl Globulin 4.2 gm/dL Albumin/Globulin Ratio 0.8 L (1-2) - Radiology Interpretation Free Text/Narrative:: Ultrasound of the left lower extremity does not show any DVT area he does have a large ecchymosis on the lateral thigh but there is no focal mass or fluid collection noted. X-ray of the left knee does not show any change from August 25 - Re-Assessments/Exams Free Text/Narrative Re-Assessment/Exam: 08/30/18 23:37 Spoke to the patient regarding the normal ultrasound of his left extremity, no changes on the x-ray from his surgery from August 25 x-rays, his normal white count and blood work. So I do not believe he has an infection in the knee do not believe he has a blood clot in that leg. It does appear that he has more swelling in the left knee but I am not certain why that is happening. He does have physical therapy on Saturday and to see the orthopedist on Saturday as well. Departure - Departure Time of Disposition: 23:38 Disposition: Home, Self-Care 01 Condition: Fair Clinical Impression: Status post left knee surgery, Swelling of left knee joint Left knee pain Qualifiers: Chronicity: acute Qualified Code(s): M25.562 - Pain in left knee - Discharge Information *PRESCRIPTION DRUG MONITORING PROGRAM REVIEWED*: Not Applicable *COPY OF PRESCRIPTION DRUG MONITORING REPORT IN PATIENT FRANCOISE: Not Applicable Referrals: Marilia Fagan NP [Primary Care Provider] - Forms: ED Department Discharge Additional Instructions: Continue with your gentle exercises at home as suggested by the orthopedist, continue with your support stocking, when you follow-up with your orthopedist on Saturday make certain you let them know that you were in the ER and got the ultrasound and the x-ray and the blood work, if there is marked worsening of you symptoms before you see the orthopedist return to the ER - My Orders Last 24 Hours: My Active Orders 08/30/18 20:43 VL Duplex Lwr Ext Veins Ltd Lt [US] Stat 08/30/18 22:48 Knee 1V or 2V Lt [CR] Stat - Assessment/Plan Last 24 Hours: My Active Orders 08/30/18 20:43 VL Duplex Lwr Ext Veins Ltd Lt [US] Stat 08/30/18 22:48 Knee 1V or 2V Lt [CR] Stat
--- NOTE | 2018-09-01 07:03 | CR ---
Left knee: AP and lateral views of the left knee were obtained. Comparison: Previous left knee exam of 08/25/18. Previous knee surgery is noted within the patellofemoral joint. Medial and lateral joint compartments are maintained in height. No acute fracture or other abnormality is seen. Impression: 1. Previous knee surgery. Nothing acute is seen. Diagnostic code #2
--- NOTE | 2018-09-01 07:03 | US ---
Left lower extremity deep venous ultrasound: Duplex and color flow imaging was obtained of the left common femoral, proximal greater saphenous, superficial femoral, popliteal, posterior tibial and peroneal veins. Right common femoral vein was also evaluated. Findings: Normal phasic flow, augmentation and compression are seen. No ultrasound abnormality is seen within the lateral left thigh. Impression: 1. No findings of deep venous thrombosis within the left lower extremity or right common femoral vein. Diagnostic code #1 I agree with preliminary report from [facility], finalized on 08/30/18, 11:15 PM Central Time
== END 2018-08-30 23:48 | disposition home or self-care (01) ==
LOC: JD.ED 20:09
DX: M25.462 Effusion, left knee (principal); M25.562 Pain in left knee; Z88.8 Allergy status to other drugs, medicaments and biological substances; Z79.899 Other long term (current) drug therapy; Z87.891 Personal history of nicotine dependence; Z98.890 Other specified postprocedural states
CPT/HCPCS: 36415; 73560-26-LT; 73560-LT; 80053; 85025; 93971-26-LT; 93971-LT; 99283; 99284-25

== ENCOUNTER 2018-12-08 10:59 | Emergency (ER) | payer MEDICAID ==
[2018-12-08 11:13] VITALS: BP 126/85
[2018-12-08] MEDS ORDERED: Sodium Chloride 0.9% 10 ML Syringe FLUSH PRN (11:53)
[2018-12-08] MEDS ORDERED: HYDROmorphone 1 MG/ML Syringe IVPUSH ONE (11:57)
[2018-12-08] MEDS ORDERED: Ondansetron 4 MG/2 ML SDV IVPUSH ONE (11:57)
[2018-12-08] MEDS ORDERED: Sodium Chloride 0.9% 1,000 ML IV ONE (11:57)
--- NOTE | 2018-12-08 12:00 | EDM.PDOC ---
ED HPI GENERAL MEDICAL PROBLEM - General Chief Complaint: Flank Pain Stated Complaint: KIDNEY PAIN Time Seen by Provider: 12/08/18 11:40 Source of Information: Reports: Patient, Old Records History Limitations: Reports: No Limitations - History of Present Illness INITIAL COMMENTS - FREE TEXT/NARRATIVE: 28-year-old male presents for evaluation and treatment of a sudden onset severe left-sided flank, lower abdomen and groin pain. Patient states that this started this morning. Woke up and had sudden onset of pain. He reports associated symptoms of fevers, chills, nausea, vomiting, dysuria, low back pain , flank pain and groin pain. He denies any hematuria. Patient reports he history of stones before. Review records show that he had a stone in September 2015. This was on the right side. Passed on its own. States that this feels similar. Onset: Sudden Left Flank Pain Score (Numeric/FACES): 10 - Related Data Allergies Allergy/AdvReac Type Severity Reaction Status Date / Time amitriptyline AdvReac Other Verified 12/08/18 11:12 Home Meds: Home Meds Tacrolimus [Protopic] 1 applic TP TID 11/21/17 [History] Clobetasol Propionate [Temovate 0.05% Oint] 1 dose TOP BID PRN 08/24/18 [History ] Clobetasol Propionate/Emoll [Olux-E 0.05% Foam] 1 dose TOP BID PRN 08/24/18 [ History] SUMAtriptan Succinate [Imitrex] 100 mg PO ASDIRECTED PRN 08/24/18 [History] Topiramate [Topamax] 50 mg PO BEDTIME 08/24/18 [History] Cyclobenzaprine [Flexeril] 10 mg PO TID PRN #40 tablet 08/25/18 [Rx] Famotidine [Pepcid] 20 mg PO Q12H tablet 08/25/18 [Rx] Magnesium Hydroxide [Milk of Magnesia] 30 ml PO BID PRN cup 08/25/18 [Rx] Levothyroxine 175 mcg PO ACBREAKFAST 12/08/18 [History] traMADol [Ultram] 50 mg PO Q6H PRN #10 tab 12/08/18 [Rx] Past Medical History - Past Health History Medical/Surgical History: Denies Medical/Surgical History HEENT History: Reports: None Other HEENT History: wears eyeglasses Cardiovascular History: Reports: None Respiratory History: Reports: None Gastrointestinal History: Reports: None Genitourinary History: Reports: None 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 Other Musculoskeletal History: Chronic left knee pain Neurological History: Reports: None Psychiatric History: Reports: None Endocrine/Metabolic History: Reports: Hypothyroidism Hematologic History: Reports: None Immunologic History: Reports: None Oncologic (Cancer) History: Reports: None Dermatologic History: Reports: Psoriasis - Past Surgical History Head Surgeries/Procedures: Reports: None HEENT Surgical History: Reports: None Cardiovascular Surgical History: Reports: None Respiratory Surgical History: Reports: None GI Surgical History: Reports: None Male Surgical History: Reports: None Endocrine Surgical History: Reports: None Neurological Surgical History: Reports: None Musculoskeletal Surgical History: Reports: Knee Replacement Oncologic Surgical History: Reports: None Social & Family History - Family History Family Medical History: Noncontributory - Tobacco Use Smoking Status *Q: Never Smoker - Caffeine Use Caffeine Use: Reports: Coffee - Recreational Drug Use Recreational Drug Use: No - Living Situation & Occupation Living situation: Reports: Single, Other ED ROS GENERAL - Review of Systems Review Of Systems: See Below Constitutional: Reports: Fever, Chills GI/Abdominal: Reports: Abdominal Pain (Left lower abdomen), Nausea, Vomiting : Reports: Dysuria, Flank Pain (Left). Denies: Hematuria Musculoskeletal: Reports: Back Pain (Left mid to lower back) ED EXAM, RENAL/ - Physical Exam Exam: See Below Exam Limited By: No Limitations General Appearance: Alert, WD/WN, Moderate Distress (Pacing around the room), Thin Ears: Normal External Exam Nose: Normal Inspection Throat/Mouth: Normal Inspection, Normal Voice, No Airway Compromise Respiratory/Chest: No Respiratory Distress, Lungs Clear, Normal Breath Sounds Cardiovascular: Normal Peripheral Pulses, Regular Rate, Rhythm, No Murmur GI/Abdominal: Normal Bowel Sounds, Soft, Non-Tender Back Exam: Normal Inspection, CVA Tenderness (L) Course - Vital Signs Last Recorded V/S: Last Vital Signs Temp 97.9 F 12/08/18 11:10 Pulse 66 12/08/18 11:10 Resp 16 12/08/18 11:10 BP 126/85 12/08/18 11:10 Pulse Ox 100 12/08/18 11:10 - Orders/Labs/Meds Labs: Laboratory Tests 12/08/18 12/08/18 12/08/18 Range/Units 12:09 12:09 13:33 WBC 7.88 (4.23-9.07) K/mm3 RBC 4.71 (4.63-6.08) M/mm3 Hgb 14.3 (13.7-17.5) gm/L Hct 42.6 (40.1-51.0) % MCV 90.4 (79.0-92.2) fl MCH 30.4 (25.7-32.2) pg MCHC 33.6 (32.2-35.5) g/dl RDW Std Deviation 45.3 H (35.1-43.9) fL Plt Count 321 (163-337) K/mm3 MPV 9.9 (9.4-12.3) fl Neutrophils % (Manual) 67 H (40-60) % Band Neutrophils % 0 (0-10) % Lymphocytes % (Manual) 24 (20-40) % Atypical Lymphs % 0 % Monocytes % (Manual) 3 (2-10) % Eosinophils % (Manual) 5 (0.8-7.0) % Basophils % (Manual) 1 (0.2-1.2) Platelet Estimate Adequate RBC Morph Comment Normal Sodium 143 (136-145) mEq/L Potassium 4.5 (3.5-5.1) mEq/L Chloride 108 H (98-107) mEq/L Carbon Dioxide 23 (21-32) mEq/L Anion Gap 16.5 H (5-15) BUN 33 H (7-18) mg/dL Creatinine 1.2 (0.7-1.3) mg/dL Est Cr Clr Drug Dosing 94.44 mL/min Estimated GFR (MDRD) > 60 (>60) mL/min BUN/Creatinine Ratio 27.5 H (14-18) Glucose 102 (74-106) mg/dL Calcium 9.2 (8.5-10.1) mg/dL Total Bilirubin 0.3 (0.2-1.0) mg/dL AST 13 L (15-37) U/L ALT 20 (16-63) U/L Alkaline Phosphatase 78 (46-116) U/L Total Protein 7.6 (6.4-8.2) g/dl Albumin 4.0 (3.4-5.0) g/dl Globulin 3.6 gm/dL Albumin/Globulin Ratio 1.1 (1-2) Urine Color Yellow (Yellow) Urine Appearance Clear (Clear) Urine pH 6.0 (5.0-8.0) Ur Specific [place] > or = 1.030 (1.005-1.030) Urine Protein 1+ H (Negative) Urine Glucose (UA) Negative (Negative) Urine Ketones Negative (Negative) Urine Occult Blood Negative (Negative) Urine Nitrite Negative (Negative) Urine Bilirubin Negative (Negative) Urine Urobilinogen 0.2 (0.2-1.0) Ur Leukocyte Esterase Negative (Negative) Urine RBC 0-5 (0-5) /hpf Urine WBC 0-5 (0-5) /hpf Ur Squamous Epith Cells 0-5 (0-5) /hpf Urine Bacteria Few (FEW) /hpf Urine Mucus Moderate H (FEW) /hpf Meds: Medications Discontinued Medications Generic Name Dose Route Start Last Admin Trade Name Freq PRN Reason Stop Dose Admin Hydromorphone HCl 1 mg 12/08/18 11:57 12/08/18 12:12 Dilaudid IVPUSH 12/08/18 11:58 1 mg ONETIME ONE Administration Sodium Chloride 1,000 mls @ 999 mls/hr 12/08/18 11:57 12/08/18 12:13 Normal Saline IV 12/08/18 12:57 999 mls/hr ONETIME ONE Administration Ondansetron HCl 4 mg 12/08/18 11:57 12/08/18 12:13 Zofran IVPUSH 12/08/18 11:58 4 mg ONETIME ONE Administration Sodium Chloride 10 ml 12/08/18 11:53 12/08/18 12:12 Saline Flush FLUSH 10 ml ASDIRECTED PRN Administration Keep Vein Open - Radiology Interpretation Free Text/Narrative:: CT abdomen and pelvis Technique: Multiple axial sections were obtained from above the dome of the diaphragm inferiorly through the pubic symphysis. Intravenous and oral contrast not utilized. Study has been performed as a ureteral stone protocol. Findings: Left ureter is slightly prominent in size. This finding is caused by a distal left ureteral obstructing stone at the UVJ measuring 2.6 mm. Small nonobstructing calculi seen within the left kidney measuring in the 1-2 mm range. No other abnormal calcifications are seen. Visualized lung bases show nothing acute. Liver contains no focal abnormality. Gallbladder contains no calcified gallstones. Spleen appears within normal limits. Adrenal glands show no nodule. Pancreas is within normal limits. Aorta shows no aneurysm. No retroperitoneal adenopathy is seen. Appendix is seen which is normal. No pelvic mass or adenopathy is seen. Bone window settings were reviewed which appear within normal limits for the patient's age. Incidental small fat-containing umbilical hernia. Impression: 1. Mildly obstructing 2.6 mm distal left ureteral stone at the UVJ. 2. Small nonobstructing calculi within the left kidney. 3. No additional abnormality is identified on noncontrast CT study of the abdomen and pelvis performed as a ureteral stone protocol. - Re-Assessments/Exams Free Text/Narrative Re-Assessment/Exam: 12/08/18 14:32 I reviewed the labs and imaging with the patient. He is resting much more comfortable at this time. Likely that he passed a stone. He has been able to urinate more and is in no distress whatsoever at this point. I will discharge home. Discharge instructions as documented. Departure - Departure Time of Disposition: 14:39 Disposition: Home, Self-Care 01 Condition: Good Clinical Impression: Kidney stone - Discharge Information *PRESCRIPTION DRUG MONITORING PROGRAM REVIEWED*: No *COPY OF PRESCRIPTION DRUG MONITORING REPORT IN PATIENT FRANCOISE: No Prescriptions: traMADol [Ultram] 50 mg PO Q6H PRN #10 tab PRN Reason: Pain Instructions: Kidney Stones, [id number] Referrals: Marilia Fagan NP [Primary Care Provider] - Forms: ED Department Discharge Additional Instructions: Drink plenty of fluids. Based on your symptoms resolving you likely passed the stone today. If your pain returns or worsens recommend follow-up with urology in [place]. Your given medication in the ER that can affect your drive and operate machinery. Do not drive or operate machinery within 10 hours of taking perception narcotic pain medication. Tramadol 1 tab every 6 hours if needed for pain. Please return to the ER if your symptoms change or worsen.
--- NOTE | 2018-12-08 13:03 | CT ---
CT abdomen and pelvis Technique: Multiple axial sections were obtained from above the dome of the diaphragm inferiorly through the pubic symphysis. Intravenous and oral contrast not utilized. Study has been performed as a ureteral stone protocol. Findings: Left ureter is slightly prominent in size. This finding is caused by a distal left ureteral obstructing stone at the UVJ measuring 2.6 mm. Small nonobstructing calculi seen within the left kidney measuring in the 1-2 mm range. No other abnormal calcifications are seen. Visualized lung bases show nothing acute. Liver contains no focal abnormality. Gallbladder contains no calcified gallstones. Spleen appears within normal limits. Adrenal glands show no nodule. Pancreas is within normal limits. Aorta shows no aneurysm. No retroperitoneal adenopathy is seen. Appendix is seen which is normal. No pelvic mass or adenopathy is seen. Bone window settings were reviewed which appear within normal limits for the patient's age. Incidental small fat-containing umbilical hernia. Impression: 1. Mildly obstructing 2.6 mm distal left ureteral stone at the UVJ. 2. Small nonobstructing calculi within the left kidney. 3. No additional abnormality is identified on noncontrast CT study of the abdomen and pelvis performed as a ureteral stone protocol. Diagnostic code #3
== END 2018-12-08 14:59 | disposition home or self-care (01) ==
LOC: JD.ED 10:59
DX: N20.2 Calculus of kidney with calculus of ureter (principal); E03.9 Hypothyroidism, unspecified; Z79.899 Other long term (current) drug therapy; Z88.8 Allergy status to other drugs, medicaments and biological substances
CPT/HCPCS: 36415; 74176; 80053; 81001; 85007; 85027; 96361; 96374; 96375; 99284; J1170; J2405; J7040

== ENCOUNTER 2019-07-03 19:33 | Emergency (ER) | payer MEDICAID ==
[2019-07-03 19:48] VITALS: BP 119/86; PULSE 86
--- NOTE | 2019-07-03 21:39 | EDM.PDOC ---
ED HPI GENERAL MEDICAL PROBLEM - General Chief Complaint: Abdominal Pain Stated Complaint: GALL BLADDER PAIN Time Seen by Provider: 07/03/19 20:30 Source of Information: Reports: Patient History Limitations: Reports: No Limitations - History of Present Illness INITIAL COMMENTS - FREE TEXT/NARRATIVE: This is a 48-year-old male. About 2 weeks ago he started having left upper quadrant abdominal pain. He says around that time he had a lot of coughing and coughing spells but no fever and now the cough has resolved. He notices that he gets sharp and crampy pain in that left upper quadrant when he is sitting in his lazy boy or if he tries to do chores. But definitely makes it worse. He also states sometimes eating will make it worse as well. He denies any nausea and vomiting and he is having normal bowel movements. He has had no fever and no chills. But he comes to the ER for evaluation. Left Upper Abdominal Pain Score (Numeric/FACES): 9 - Related Data Allergies Allergy/AdvReac Type Severity Reaction Status Date / Time amitriptyline AdvReac Other Verified 12/08/18 11:12 Home Meds: Home Meds Tacrolimus [Protopic] 1 applic TP TID 11/21/17 [History] Clobetasol Propionate [Temovate 0.05% Oint] 1 dose TOP BID PRN 08/24/18 [History ] Clobetasol Propionate/Emoll [Olux-E 0.05% Foam] 1 dose TOP BID PRN 08/24/18 [ History] SUMAtriptan Succinate [Imitrex] 100 mg PO ASDIRECTED PRN 08/24/18 [History] Topiramate [Topamax] 50 mg PO BEDTIME 08/24/18 [History] Cyclobenzaprine [Flexeril] 10 mg PO TID PRN #40 tablet 08/25/18 [Rx] Famotidine [Pepcid] 20 mg PO Q12H tablet 08/25/18 [Rx] Magnesium Hydroxide [Milk of Magnesia] 30 ml PO BID PRN cup 08/25/18 [Rx] Levothyroxine 175 mcg PO ACBREAKFAST 12/08/18 [History] traMADol [Ultram] 50 mg PO Q6H PRN #10 tab 12/08/18 [Rx] Meloxicam 15 mg PO QAM #20 tablet 07/03/19 [Rx] traMADol [Ultram] 50 mg PO Q8H PRN #20 tab 07/03/19 [Rx] Past Medical History - Past Health History Medical/Surgical History: Denies Medical/Surgical History HEENT History: Reports: None Other HEENT History: wears eyeglasses Cardiovascular History: Reports: None Respiratory History: Reports: None Gastrointestinal History: Reports: None Genitourinary History: Reports: None 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 Other Musculoskeletal History: Chronic left knee pain Neurological History: Reports: None Psychiatric History: Reports: None Endocrine/Metabolic History: Reports: Hypothyroidism Hematologic History: Reports: None Immunologic History: Reports: None Oncologic (Cancer) History: Reports: None Dermatologic History: Reports: Psoriasis - Past Surgical History Head Surgeries/Procedures: Reports: None HEENT Surgical History: Reports: None Cardiovascular Surgical History: Reports: None Respiratory Surgical History: Reports: None GI Surgical History: Reports: None Male Surgical History: Reports: None Endocrine Surgical History: Reports: None Neurological Surgical History: Reports: None Musculoskeletal Surgical History: Reports: Knee Replacement Oncologic Surgical History: Reports: None Social & Family History - Family History Family Medical History: Noncontributory - Tobacco Use Smoking Status *Q: Current Every Day Smoker Years of Tobacco use: 35 Packs/Tins Daily: 0.5 - Caffeine Use Caffeine Use: Reports: Coffee, Soda - Recreational Drug Use Recreational Drug Use: No - Living Situation & Occupation Living situation: Reports: Single, Other ED ROS GENERAL - Review of Systems Review Of Systems: See Below Constitutional: Denies: Fever, Chills HEENT: Reports: No Symptoms Respiratory: Denies: Shortness of Breath, Wheezing, Cough Cardiovascular: Denies: Chest Pain Endocrine: Reports: No Symptoms GI/Abdominal: Reports: Abdominal Pain. Denies: Constipation, Diarrhea, Nausea, Vomiting : Reports: No Symptoms Musculoskeletal: Reports: No Symptoms Skin: Reports: No Symptoms Neurological: Reports: No Symptoms Psychiatric: Reports: No Symptoms Hematologic/Lymphatic: Reports: No Symptoms ED EXAM, GI/ABD - Physical Exam Exam: See Below Exam Limited By: No Limitations General Appearance: Alert, WD/WN, No Apparent Distress Eyes: Bilateral: Normal Appearance Ears: Normal External Exam Nose: Normal Inspection Throat/Mouth: Normal Inspection, Normal Lips, Normal Voice, No Airway Compromise Head: Normocephalic Neck: Supple Respiratory/Chest: No Respiratory Distress, Lungs Clear, Normal Breath Sounds, Other (Patient of his left anterior chest across the ribs in the costochondral margin are tender, he says that is exactly where he is having the pain, the costochondral junction is also tender there is no crepitus and the lateral ribs do not appear to be tender) Cardiovascular: Regular Rate, Rhythm, No Murmur GI/Abdominal Exam: Soft, Non-Tender, Other (No tenderness in the left upper quadrant or right upper quadrant or the lower abdomen, I cannot reproduce any of that pain by palpating his abdomen like when I palpate his chest wall) Back Exam: Full Range of Motion Extremities: Normal Inspection, Normal Range of Motion Neurological: Alert, Oriented Psychiatric: Normal Affect, Normal Mood Skin Exam: Warm, Dry Course - Vital Signs Last Recorded V/S: Last Vital Signs Temp 98.8 F 07/03/19 19:47 Pulse 86 07/03/19 19:47 Resp 18 07/03/19 19:47 BP 119/86 07/03/19 19:47 Pulse Ox 100 07/03/19 19:47 - Orders/Labs/Meds Orders: Active Orders 24 hr Category Date Time Status Abdomen 2V AP Flat Upright [CR] Stat Exams 07/03/19 21:08 Taken Chest 2V [CR] Stat Exams 07/03/19 21:08 Taken - Radiology Interpretation Free Text/Narrative:: chest X-ray does not show any acute abnormalities KUB and upright do not show any acute abnormalities though he does have calcification of the costochondral ribs noted - Re-Assessments/Exams Free Text/Narrative Re-Assessment/Exam: 07/03/19 22:24 I spoke to the patient regarding the chest wall pain I believe he is got costochondritis from his coughing spells and from his lifting several weeks ago. I am in a place him on some meloxicam and give him some tramadol to help. He is to use a heating pad to the ribs and not to sit in the lazy boy or any sort of crunched position for his ribs because that will aggravate the pain. The patient understands. Departure - Departure Time of Disposition: 22:25 Disposition: Home, Self-Care 01 Condition: Good Clinical Impression: Costochondritis, acute, Left-sided chest wall pain Sprained rib Qualifiers: Encounter type: initial encounter Qualified Code(s): S23.41XA - Sprain of ribs , initial encounter - Discharge Information *PRESCRIPTION DRUG MONITORING PROGRAM REVIEWED*: No *COPY OF PRESCRIPTION DRUG MONITORING REPORT IN PATIENT FRANCOISE: No Prescriptions: Meloxicam 15 mg PO QAM #20 tablet traMADol [Ultram] 50 mg PO Q8H PRN #20 tab PRN Reason: Pain Instructions: Chest Wall Pain, [id number], Costochondritis, [id number] Referrals: Marilia Fagan NP [Primary Care Provider] - Forms: ED Department Discharge Additional Instructions: Do not to do any heavy lifting, do not sit in the lazy boy because your chest gets crunched up and this will make it worse, take the meloxicam for the inflammation and the tramadol for the pain, use a heating pad to the left chest wall to help with the soreness in the pain, follow-up with your family doctor for recheck, return to the ER as needed Sepsis Event Note - Evaluation Sepsis Screening Result: No Definite Risk - Focused Exam Vital Signs: Vital Signs Temp Pulse Resp BP Pulse Ox 07/03/19 19:47 98.8 F 86 18 119/86 100 Date Exam was Performed: 07/03/19 Time Exam was Performed: 22:24 - My Orders Last 24 Hours: My Active Orders 07/03/19 21:08 Abdomen 2V AP Flat Upright [CR] Stat Chest 2V [CR] Stat - Assessment/Plan Last 24 Hours: My Active Orders 07/03/19 21:08 Abdomen 2V AP Flat Upright [CR] Stat Chest 2V [CR] Stat
--- NOTE | 2019-07-05 17:48 | CR ---
Chest: Two views of the chest were obtained. Comparison: Prior chest x-ray of 10/17/10. Heart size and mediastinum are normal. Slight scarring noted behind the left heart. Lungs are clear with no acute parenchymal change. Bony structures appear within normal limits. Impression: 1. Nothing acute is appreciated on two-view chest x-ray. Diagnostic code #2 This report was dictated in [place] Standard Time
--- NOTE | 2019-07-05 17:48 | CR ---
Abdomen: Supine and upright views of the abdomen were obtained. Comparison: Prior CT abdomen and pelvis exam of 12/08/18, and prior abdominal x-ray of 10/17/10. Bowel gas pattern appears normal. Bony structures appear within normal limits. No abnormal calcifications or soft tissue abnormality is seen. Impression: 1. Nothing acute is seen on supine abdominal x-ray. Diagnostic code #1 This report was dictated in [place] Standard Time
== END 2019-07-03 22:40 | disposition home or self-care (01) ==
LOC: JD.ED 19:33
DX: M94.0 Chondrocostal junction syndrome [Tietze] (principal); R07.89 Other chest pain; E03.9 Hypothyroidism, unspecified; F17.210 Nicotine dependence, cigarettes, uncomplicated; Z79.890 Hormone replacement therapy; Z88.8 Allergy status to other drugs, medicaments and biological substances
CPT/HCPCS: 71046; 71046-26; 74019; 74019-26; 99283; 99284-25

== ENCOUNTER 2019-07-31 19:33 | Emergency (ER) | payer MEDICAID ==
--- NOTE | 2019-07-31 20:20 | EDM.PDOC ---
ED HPI GENERAL MEDICAL PROBLEM - General Chief Complaint: Chest Pain Stated Complaint: LEFT CHEST PAIN & LEFT SIDE PAIN Time Seen by Provider: 07/31/19 19:55 Source of Information: Reports: Patient History Limitations: Reports: No Limitations - History of Present Illness INITIAL COMMENTS - FREE TEXT/NARRATIVE: This is a 48-year-old male. He comes tonight because he is having left-sided chest pain. He has a history of this type of sharp chest pain. I saw him back in July 04 for this similar type sharp chest pain was diagnosed with costochondritis and left sided rib pain. He states he's been taking the tramadol that I gave him as well as the Flexeril and now that he is run out the sharp pain in his chest flared up on Saturday. So he comes back to the ER on the weekend because he wants something for pain. He says he has an appointment to see his family doctor the end of this month but he was supposed to see her last month. The patient is in no acute distress and does not appear to be hurting presently. He denies any cough or congestion. He denies any nausea vomiting. He has been eating without difficulty. He denies any fever or chills. Left Chest Pain Score (Numeric/FACES): 5 - Related Data Allergies Allergy/AdvReac Type Severity Reaction Status Date / Time amitriptyline AdvReac Other Verified 07/31/19 19:42 Home Meds: Home Meds Tacrolimus [Protopic] 1 applic TP TID 11/21/17 [History] Clobetasol Propionate [Temovate 0.05% Oint] 1 dose TOP BID PRN 08/24/18 [History ] SUMAtriptan Succinate [Imitrex] 100 mg PO ASDIRECTED PRN 08/24/18 [History] Topiramate [Topamax] 50 mg PO BEDTIME 08/24/18 [History] Cyclobenzaprine [Flexeril] 10 mg PO TID PRN #40 tablet 08/25/18 [Rx] Levothyroxine 175 mcg PO ACBREAKFAST 12/08/18 [History] Meloxicam 15 mg PO QAM #20 tablet 07/03/19 [Rx] Cyclobenzaprine [Flexeril] 10 mg PO BID PRN #15 tab 07/31/19 [Rx] Ketorolac [Toradol] 10 mg PO Q6H PRN #20 tab 07/31/19 [Rx] Past Medical History - Past Health History Medical/Surgical History: Denies Medical/Surgical History HEENT History: Reports: None Other HEENT History: wears eyeglasses Cardiovascular History: Reports: None Respiratory History: Reports: None Gastrointestinal History: Reports: None Genitourinary History: Reports: None 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 Other Musculoskeletal History: Chronic left knee pain Neurological History: Reports: None Psychiatric History: Reports: None Endocrine/Metabolic History: Reports: Hypothyroidism Hematologic History: Reports: None Immunologic History: Reports: None Oncologic (Cancer) History: Reports: None Dermatologic History: Reports: Psoriasis - Past Surgical History Head Surgeries/Procedures: Reports: None HEENT Surgical History: Reports: None Cardiovascular Surgical History: Reports: None Respiratory Surgical History: Reports: None GI Surgical History: Reports: None Male Surgical History: Reports: None Endocrine Surgical History: Reports: None Neurological Surgical History: Reports: None Musculoskeletal Surgical History: Reports: Knee Replacement Oncologic Surgical History: Reports: None Social & Family History - Family History Family Medical History: Noncontributory - Tobacco Use Smoking Status *Q: Current Every Day Smoker Years of Tobacco use: 38 Packs/Tins Daily: 1 - Caffeine Use Caffeine Use: Reports: Coffee, Soda - Recreational Drug Use Recreational Drug Use: No - Living Situation & Occupation Living situation: Reports: Single, Other ED ROS GENERAL - Review of Systems Review Of Systems: See Below Constitutional: Denies: Fever, Chills HEENT: Reports: No Symptoms Respiratory: Reports: Pleuritic Chest Pain. Denies: Shortness of Breath, Wheezing, Cough Cardiovascular: Reports: Chest Pain Endocrine: Reports: No Symptoms GI/Abdominal: Reports: No Symptoms : Reports: No Symptoms Musculoskeletal: Reports: Other (Left rib pain) Skin: Reports: No Symptoms Neurological: Reports: No Symptoms Psychiatric: Reports: No Symptoms Hematologic/Lymphatic: Reports: No Symptoms ED EXAM, GENERAL - Physical Exam Exam: See Below Exam Limited By: No Limitations General Appearance: Alert, WD/WN, No Apparent Distress Eye Exam: Bilateral Eye: Normal Inspection Ears: Normal External Exam Nose: Normal Inspection Throat/Mouth: Normal Inspection, Normal Lips, Normal Voice, No Airway Compromise Head: Normocephalic Neck: Supple Respiratory/Chest: No Respiratory Distress, Lungs Clear, Normal Breath Sounds, Other (Palpation of his left anterior chest reveals tenderness in the costochondral margin distally in the sternum as well as the cartilage area in the left anterior chest, I can reproduce the sharp pain that he describes with movement and breathing. He does not have tenderness in the right sided costochondral margin or ribs.) Cardiovascular: Regular Rate, Rhythm, No Murmur GI/Abdominal: Soft Back Exam: Full Range of Motion Extremities: Normal Inspection, Normal Range of Motion Neurological: Alert, Oriented Psychiatric: Normal Affect, Normal Mood Skin Exam: Warm, Dry EKG INTERPRETATION EKG Date: 07/31/19 Time: 19:45 EKG Interpretation Comments: EKG shows a normal sinus rhythm rate of 70, there is no acute ST or T wave changes, there is no ischemia noted. Course - Vital Signs Last Recorded V/S: Last Vital Signs Temp 97.1 F 07/31/19 19:38 Pulse 74 07/31/19 19:38 Resp 16 07/31/19 19:38 BP 142/89 H 07/31/19 19:38 Pulse Ox 95 07/31/19 19:38 - Orders/Labs/Meds Orders: Active Orders 24 hr Category Date Time Status EKG Documentation Completion [RC] ASDIRECTED Care 07/31/19 20:14 Active Ketorolac [Toradol] Med 07/31/19 21:08 Once 60 mg IM ONETIME ONE EKG 12 Lead [EK] Stat Ther 07/31/19 20:14 Ordered Labs: Laboratory Tests 07/31/19 Range/Units 20:25 Troponin I < 0.017 (0.00-0.056) ng/mL - Re-Assessments/Exams Free Text/Narrative Re-Assessment/Exam: 07/31/19 21:09 Spoke to the patient regarding the negative troponin. I believe he has a reoccurrence of his acute costochondritis and left rib pain. I am not providing tramadol this evening but I am going to put him on Toradol and give him a Toradol shot. I will continue to give him muscle relaxers if he needs them. He is to follow-up with his family doctor on the of this month as scheduled for reevaluation. 07/31/19 21:11 Went back to the room and stressed heavily that if he is taking the Toradol he cannot take the meloxicam since the combination of the 2 can cause severe stomach problems. The patient states he understands and he will not take the meloxicam as long as he is on the Toradol. Departure - Departure Time of Disposition: 21:10 Disposition: Home, Self-Care 01 Condition: Fair Clinical Impression: Acute costochondritis, Rib pain on left side Prescriptions: Cyclobenzaprine [Flexeril] 10 mg PO BID PRN #15 tab PRN Reason: Spasms Ketorolac [Toradol] 10 mg PO Q6H PRN #20 tab PRN Reason: Pain Instructions: Costochondritis, [id number] Referrals: Marilia Fagan NP [Primary Care Provider] - Forms: ED Department Discharge Additional Instructions: DO NOT TAKE THE TORADOL AND THE MELOXICAM TOGETHER OR EVEN ON THE SAME DAY, take the Flexeril for muscle spasms or chest spasms 2-3 times a day as needed, when the sharp chest pain flares up consider a heating pad on your chest to help with the soreness and the pain, avoid heavy lifting or straining it will make your chest hurt more, follow-up with your family doctor on the as scheduled, return to the ER for emergencies Sepsis Event Note - Evaluation Sepsis Screening Result: No Definite Risk - Focused Exam Vital Signs: Vital Signs Temp Pulse Resp BP Pulse Ox 07/31/19 19:38 97.1 F 74 16 142/89 H 95 Date Exam was Performed: 07/31/19 Time Exam was Performed: 21:08 - My Orders Last 24 Hours: My Active Orders 07/31/19 20:14 EKG Documentation Completion [RC] ASDIRECTED EKG 12 Lead [EK] Stat 07/31/19 21:08 Ketorolac [Toradol] 60 mg IM ONETIME ONE - Assessment/Plan Last 24 Hours: My Active Orders 07/31/19 20:14 EKG Documentation Completion [RC] ASDIRECTED EKG 12 Lead [EK] Stat 07/31/19 21:08 Ketorolac [Toradol] 60 mg IM ONETIME ONE
[2019-07-31] MEDS ORDERED: Ketorolac 60 MG/2 ML SDV IM ONE (21:08)
[2019-07-31 21:47] VITALS: BP 111/71; PULSE 72
== END 2019-07-31 21:28 | disposition home or self-care (01) ==
LOC: JD.ED 19:33
DX: M94.0 Chondrocostal junction syndrome [Tietze] (principal); E03.9 Hypothyroidism, unspecified; F17.210 Nicotine dependence, cigarettes, uncomplicated; Z88.8 Allergy status to other drugs, medicaments and biological substances; Z79.899 Other long term (current) drug therapy
CPT/HCPCS: 36415; 84484; 93005; 96372; 99285; J1885; 93010; 99283

== ENCOUNTER 2020-06-12 20:04 | Emergency (ER) | payer MEDICAID | END 2020-06-12 22:20 | disposition left against medical advice (07) | LOC: JD.ED 20:04 | DX: Z53.21 Procedure and treatment not carried out due to patient leaving prior to being seen by health care provider (principal) ==

== ENCOUNTER 2020-08-20 17:40 | Emergency (ER) | payer MEDICAID, OTHER ==
[2020-08-20 17:50] VITALS: BP 123/92; PULSE 71
--- NOTE | 2020-08-20 18:09 | EDM.PDOC ---
ED HPI GENERAL MEDICAL PROBLEM - General Chief Complaint: Lower Extremity Injury/Pain Stated Complaint: LT KNEE PAIN, LT ELBOW INJURY Time Seen by Provider: 08/20/20 17:52 Source of Information: Reports: Patient History Limitations: Reports: No Limitations - History of Present Illness INITIAL COMMENTS - FREE TEXT/NARRATIVE: 50-year-old male presents with a complaint of injury to his left knee and left elbow. 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 States that he felt pain to his left knee and then fell sideways and landed on his left elbow. He states that he was wearing an immobilizer brace and that seemed to help however he does have pain to the left knee. He does have an abrasion noted to the left elbow and pain there as well. He denies hitting his head or losing consciousness. - Related Data Allergies Allergy/AdvReac Type Severity Reaction Status Date / Time amitriptyline AdvReac Other Verified 07/31/19 19:42 Home Meds: Home Meds Tacrolimus [Protopic] 1 applic TP TID 11/21/17 [History] SUMAtriptan succinate [Imitrex] 100 mg PO ASDIRECTED PRN 08/24/18 [History] Topiramate [Topamax] 50 mg PO BEDTIME 08/24/18 [History] Levothyroxine 175 mcg PO ACBREAKFAST 12/08/18 [History] Meloxicam 15 mg PO QAM #20 tablet 07/03/19 [Rx] Past Medical History - Past Health History Medical/Surgical History: Denies Medical/Surgical History HEENT History: Reports: None Other HEENT History: wears eyeglasses Cardiovascular History: Reports: None Respiratory History: Reports: None Gastrointestinal History: Reports: None Genitourinary History: Reports: None 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 Other Musculoskeletal History: Chronic left knee pain Neurological History: Reports: None Psychiatric History: Reports: Anxiety, Depression Endocrine/Metabolic History: Reports: Hypothyroidism Hematologic History: Reports: None Immunologic History: Reports: None Oncologic (Cancer) History: Reports: None Dermatologic History: Reports: Psoriasis - Past Surgical History Musculoskeletal Surgical History: Reports: Knee Replacement Oncologic Surgical History: Reports: None Social & Family History - Family History Family Medical History: No Pertinent Family History - Tobacco Use Tobacco Use Status *Q: Current Every Day Tobacco User Years of Tobacco use: 20 Packs/Tins Daily: 0.3 - Caffeine Use Caffeine Use: Reports: Coffee - Recreational Drug Use Recreational Drug Use: No - Living Situation & Occupation Living situation: Reports: Single, Other Review of Systems - Review of Systems Review Of Systems: Comprehensive ROS is negative, except as noted in HPI. ED EXAM, GENERAL - Physical Exam Exam: See Below Exam Limited By: No Limitations General Appearance: Alert, WD/WN, No Apparent Distress Ears: Hearing Grossly Normal Nose: Normal Inspection Throat/Mouth: Normal Inspection, Normal Lips, Normal Voice, No Airway Compromise Head: Atraumatic, Normocephalic Neck: Normal Inspection, Supple, Non-Tender, Full Range of Motion Respiratory/Chest: No Respiratory Distress Cardiovascular: Normal Peripheral Pulses Peripheral Pulses: 2+: Radial (L), Radial (R) (Male) Exam: Deferred Rectal (Males) Exam: Deferred Back Exam: Normal Inspection, Full Range of Motion Extremities: Normal Inspection (Abrasion noted to left elbow), Normal Range of Motion, No Pedal Edema, Normal Capillary Refill, Joint Swelling (Left knee). No: Non-Tender (Tenderness noted to lateral aspect of left knee just below the patella) Neurological: Alert, Oriented, Normal Cognition Psychiatric: Normal Affect, Normal Mood Skin Exam: Warm, Dry, Normal Color, No Rash, Wound/Incision Lymphatic: No Adenopathy (Noted to left elbow) Course - Vital Signs Text/Narrative:: 50-year-old male who presents to the emergency department with complaints of injury to his left knee and his left elbow. Patient was at work and accidentally stepped backwards into a grate in the floor that was about 2 feet deep. He is unsure of how he fell however he has pain to his left knee and somehow managed to fall onto his left elbow which resulted in pain to the left elbow and an abrasion. Patient does wear an immobilizer brace on the left knee so he feels this helped stabilize somewhat however he has pain noted to the lateral knee just below the kneecap upon assessment. Patient does have full range of motion to the knee and is able to bear weight. Patient has full range of motion to the left elbow. I have ordered an x-ray of the left elbow and the left knee. Patient will not require stitches to the left elbow. Last Recorded V/S: Last Vital Signs Temp 97.7 F 02/27/21 17:47 Pulse 71 08/20/20 17:47 Resp 14 08/20/20 17:47 BP 123/92 H 08/20/20 17:47 Pulse Ox 100 08/20/20 17:47 - Orders/Labs/Meds Orders: Active Orders 24 hr Category Date Time Status Elbow Min 3V Lt [CR] Stat Exams 08/20/20 18:08 Ordered Knee 3V Lt [CR] Stat Exams 08/20/20 18:08 Ordered - Radiology Interpretation Free Text/Narrative:: I had Dr. Okeefe review the patient's xrays with me and there is nothing acute appreciated on the xray of the left elbow or the left knee. Departure - Departure Time of Disposition: 19:33 Disposition: Home, Self-Care 01 Condition: Good Clinical Impression: Left knee injury Qualifiers: Encounter type: initial encounter Qualified Code(s): S89.92XA - Unspecified injury of left lower leg, initial encounter Injury of elbow, left Qualifiers: Encounter type: initial encounter Qualified Code(s): S59.902A - Unspecified injury of left elbow, initial encounter - Discharge Information Referrals: Marilia Fagan NP [Primary Care Provider] - Forms: ED Department Discharge Additional Instructions: You were seen in the emergency department this evening with complaints of injury to your left knee and left elbow after stepping into a grate at work and falling onto your left elbow. Xray was completed of your left elbow and left knee no acute fracture is appreciated. You will be more sore over the next 48 hours and then you should notice that you are feeling better. Recommend that you take ibuprofen 600 mg alternating with Tylenol 650 mg every 4 hours. May use ice to minutes at a time 3 times a day to your left elbow and left knee. Should your condition worsen or change. Please return to the Ed. Please follow up with your primary care physician if you are not better by the middle of next week. Sepsis Event Note (ED) - Evaluation Sepsis Screening Result: No Definite Risk - Focused Exam Vital Signs: Vital Signs Temp Pulse Resp BP Pulse Ox 08/20/20 17:47 97.7 F 71 14 123/92 H 100 - My Orders Last 24 Hours: My Active Orders 08/20/20 18:08 Elbow Min 3V Lt [CR] Stat Knee 3V Lt [CR] Stat - Assessment/Plan Last 24 Hours: My Active Orders 08/20/20 18:08 Elbow Min 3V Lt [CR] Stat Knee 3V Lt [CR] Stat
--- NOTE | 2020-08-21 11:29 | CR ---
Left Elbow: 4 viewsof the left elbow were obtained. Comparison: Prior left elbow study of 10/18/09. Joint spaces are maintained. No joint effusion is seen. No acute fracture or other bony abnormality is appreciated. Impression: 1. No abnormality is appreciated on left elbow study. Diagnostic code #1
--- NOTE | 2020-08-21 11:29 | CR ---
Left knee: AP, oblique and lateral views of the left knee were obtained. Comparison: Prior left knee study of 08/25/18. Prosthesis is noted within the patellar portion of the distal femur. No joint effusion is appreciated. No acute fracture, dislocation or other bony abnormality is appreciated. Impression: 1. Prior surgery. 2. Nothing acute is appreciated on 3 view left knee exam. Diagnostic code #2
== END 2020-08-20 19:41 | disposition home or self-care (01) ==
LOC: JD.ED 17:40
DX: S50.312A Abrasion of left elbow, initial encounter (principal); S89.92XA Unspecified injury of left lower leg, initial encounter; E03.9 Hypothyroidism, unspecified; Z72.0 Tobacco use; Z79.899 Other long term (current) drug therapy; Z88.8 Allergy status to other drugs, medicaments and biological substances; W22.8XXA Striking against or struck by other objects, initial encounter; Y92.89 Other specified places as the place of occurrence of the external cause; Y99.0 Civilian activity done for income or pay
CPT/HCPCS: 73080-26-LT; 73080-LT; 73562-26-LT; 73562-LT; 99282; 99283

== ENCOUNTER 2021-05-26 18:25 | Emergency (ER) | payer MEDICAID ==
[2021-05-26 18:52] VITALS: BP 127/72; PULSE 62
[2021-05-26] MEDS ORDERED: Acetaminophen 325 MG Tab PO ONE (19:25)
[2021-05-26] MEDS ORDERED: Ketorolac 15 MG/ML SDV IM ONE (19:25)
[2021-05-26] MEDS ORDERED: Baclofen 10 MG Tab PO ONE (19:27)
--- NOTE | 2021-05-26 19:42 | EDM.PDOC ---
ED HPI GENERAL MEDICAL PROBLEM - General Chief Complaint: Flank Pain Stated Complaint: FLANK PAIN Time Seen by Provider: 05/26/21 19:25 Source of Information: Reports: Patient History Limitations: Reports: No Limitations - History of Present Illness INITIAL COMMENTS - FREE TEXT/NARRATIVE: Patient is a 50-year-old male with a chief complaint of low back pain. Patient states the back pain is been ongoing for several days. He reports the pain is primarily in the lumbar area and is associated bilaterally. He does not take any medication for this. Pain seems to be worse when he is standing and improved with lying down. Patient denies any recent injury, fevers, chills, saddle paresthesias, urinary symptoms. 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 Otherwise, he does not have any significant past medical history besides kidney stones. Reports symptoms this time are very different than kidney stones. Denies any history of cancer or chronic steroid use or IV drugs. Bilateral Flank Pain Score (Numeric/FACES): 8 - Related Data Allergies Allergy/AdvReac Type Severity Reaction Status Date / Time amitriptyline AdvReac Other Verified 05/26/21 18:52 Home Meds: Home Meds SUMAtriptan succinate [Imitrex] 100 mg PO ASDIRECTED PRN 08/24/18 [History] Topiramate [Topamax] 50 mg PO BEDTIME 08/24/18 [History] Levothyroxine 175 mcg PO ACBREAKFAST 12/08/18 [History] Baclofen 20 mg PO BID #15 tablet 05/26/21 [Rx] Omeprazole 20 mg PO DAILY 05/26/21 [History] Past Medical History - Past Health History Medical/Surgical History: Denies Medical/Surgical History HEENT History: Reports: None Other HEENT History: wears eyeglasses Cardiovascular History: Reports: None Respiratory History: Reports: None Gastrointestinal History: Reports: None Genitourinary History: Reports: None STRUCTURAL DRAFTER History: Reports: None Other Musculoskeletal History: Chronic left knee pain Neurological History: Reports: None Psychiatric History: Reports: Anxiety, Depression Endocrine/Metabolic History: Reports: Hypothyroidism Hematologic History: Reports: None Immunologic History: Reports: None Oncologic (Cancer) History: Reports: None Dermatologic History: Reports: Psoriasis - Past Surgical History Head Surgeries/Procedures: Reports: None HEENT Surgical History: Reports: None Cardiovascular Surgical History: Reports: None Respiratory Surgical History: Reports: None GI Surgical History: Reports: None Male Surgical History: Reports: None Endocrine Surgical History: Reports: None Neurological Surgical History: Reports: None Musculoskeletal Surgical History: Reports: Knee Replacement Oncologic Surgical History: Reports: None Social & Family History - Family History Family Medical History: No Pertinent Family History - Tobacco Use Tobacco Use Status *Q: Former Tobacco User Used Tobacco, but Quit: Yes Month/Year Tobacco Last Used: 2 months ago - Caffeine Use Caffeine Use: Reports: Coffee - Living Situation & Occupation Living situation: Reports: Single, Other ED ROS GENERAL - Review of Systems Review Of Systems: See Below Free Text/Narrative/Comment: In addition to that documented in the HPI above, the additional ROS was obtained: Constitutional: Denies fevers or chills Eyes: Denies vision changes ENMT: Denies sore throat CV: Denies chest pain Resp: Denies SOB GI: Denies vomiting or diarrhea : Denies painful urination MSK: Denies recent trauma Skin: Denies new rashes Neuro: Denies new numbness or tingling or weakness Endocrine: Denies unexpected weight loss Heme: Denies bleeding disorders ED EXAM,LOWER BACK PAIN/INJURY - Physical Exam Exam: See Below Text/Narrative:: I have reviewed the triage vital signs Const: Well nourished, well developed, appears stated age Eyes: Pupils Equal and reactive to light bilaterally, no conjunctival injection HENT: No signs of trauma or swelling, Neck supple without meningismus CV: Regular Rate Rhythm, Warm, well-perfused extremities RESP: Unlabored respiratory effort GI: soft, non-tender, non-distended, no masses MSK: No midline spinal tenderness. No gross deformities appreciated Skin: Warm, dry. No rashes Neuro: Alert, financial planning consultant II-XII grossly intact. Sensation and motor function of extremi ties grossly intact. Psych: Appropriate mood and affect. Course - Vital Signs Last Recorded V/S: Last Vital Signs Temp 36.7 C 05/26/21 18:50 Pulse 62 05/26/21 18:50 Resp 16 05/26/21 18:50 BP 127/72 05/26/21 18:50 Pulse Ox 98 05/26/21 18:50 - Orders/Labs/Meds Labs: Laboratory Tests 05/26/21 Range/Units 19:00 Urine Color Yellow (Yellow) Urine Appearance Clear (Clear) Urine pH 6.0 (5.0-8.0) Ur Specific [place] > or = 1.030 (1.005-1.030) Urine Protein Negative (Negative) Urine Glucose (UA) Negative (Negative) Urine Ketones 1+ H (Negative) Urine Occult Blood Negative (Negative) Urine Nitrite Negative (Negative) Urine Bilirubin Negative (Negative) Urine Urobilinogen 0.2 (0.2-1.0) Ur Leukocyte Esterase Negative (Negative) Meds: Medications Discontinued Medications Generic Name Dose Route Start Last Admin Trade Name Fish PRN Reason Stop Dose Admin Acetaminophen 650 mg 05/26/21 19:25 05/26/21 19:44 Acetaminophen 325 Mg Tab PO 05/26/21 19:26 650 mg NOW ONE Administration Baclofen 10 mg 05/26/21 19:27 05/26/21 19:44 Baclofen 10 Mg Tab PO 05/26/21 19:28 10 mg ONETIME ONE Administration Ketorolac Tromethamine 15 mg 05/26/21 19:25 05/26/21 19:44 Ketorolac 15 Mg/Ml Sdv IM 05/26/21 19:26 15 mg ONETIME ONE Administration Departure - Departure Time of Disposition: 20:42 Disposition: Home, Self-Care 01 Clinical Impression: Lumbar strain - Discharge Information Prescriptions: Baclofen 20 mg PO BID #15 tablet Instructions: Lumbar Strain Referrals: Marilia Fagan NP [Primary Care Provider] - Forms: ED Department Discharge Additional Instructions: Use Tylenol and ibuprofen every 6-8 hours as needed for pain. Avoid heavy lifting, greater than 25 pounds. Return to the emergency room for any emergent concerns. Sepsis Event Note (ED) - Evaluation Sepsis Screening Result: No Definite Risk - Focused Exam Vital Signs: Vital Signs Temp Pulse Resp BP Pulse Ox 05/26/21 18:50 36.7 C 62 16 127/72 98 - Assessment/Plan Assessment:: Patient is 42-year-old male presenting with low back pain. No evidence of kidney stone based on history or examination. Urinalysis unremarkable. Also considered spinal epidural abscess or cauda equina syndrome. None of these seem to be present based on history and examination. Patient did improve with pain medication in the emergency room. Discharged with outpatient follow-up. Return precautions discussed visual. Patient agrees with plan of care.
== END 2021-05-26 21:07 | disposition home or self-care (01) ==
LOC: JD.ED 18:25
DX: S39.012A Strain of muscle, fascia and tendon of lower back, initial encounter (principal); E03.9 Hypothyroidism, unspecified; Z88.8 Allergy status to other drugs, medicaments and biological substances; Z79.899 Other long term (current) drug therapy; Z87.891 Personal history of nicotine dependence; X58.XXXA Exposure to other specified factors, initial encounter
CPT/HCPCS: 81003; 96372; 99283; A9270; J1885

== ENCOUNTER 2022-09-15 20:01 | Emergency (ER) | payer MEDICAID ==
[2022-09-15 20:15] VITALS: BP 118/86; PULSE 75
[2022-09-15] MEDS ORDERED: Ondansetron 4 MG/2 ML SDV IVPUSH ONE (20:19)
[2022-09-15] MEDS ORDERED: HYDROmorphone 1 MG/ML Syringe IVPUSH STA (20:19)
[2022-09-15] MEDS ORDERED: Sodium Chloride 0.9% 1,000 ML IV SCH (20:30)
== END 2022-09-15 22:26 | disposition home or self-care (01) ==
LOC: JD.ED 20:01
DX: N20.0 Calculus of kidney (principal); E03.9 Hypothyroidism, unspecified; Z88.8 Allergy status to other drugs, medicaments and biological substances; Z79.899 Other long term (current) drug therapy
CPT/HCPCS: 36415; 74176; 80053; 81001; 85025; 96361; 96374; 96375; 99284; J1170; J2405; J7030

== ENCOUNTER 2022-10-24 22:29 | Emergency (ER) | payer MEDICAID ==
[2022-10-24] MEDS ORDERED: Sodium Chloride 0.9% 1,000 ML IV ONE (23:56)
[2022-10-25] MEDS ORDERED: Sodium Chloride 0.9% 1,000 ML IV ONE (01:38)
[2022-10-25 06:01] VITALS: BP 100/69; PULSE 64
== END 2022-10-25 06:15 | disposition home or self-care (01) ==
LOC: JD.ED 22:29
DX: F19.10 Other psychoactive substance abuse, uncomplicated (principal); E03.9 Hypothyroidism, unspecified; Z88.8 Allergy status to other drugs, medicaments and biological substances; Z79.899 Other long term (current) drug therapy
CPT/HCPCS: 36415; 70450; 80053; 80307; 84484; 85025; 93005; 99285; J7030

== ENCOUNTER 2022-11-08 19:07 | Emergency (ER) | payer MEDICAID ==
[2022-11-08 22:04] VITALS: BP 138/72; PULSE 73
== END 2022-11-08 22:10 | disposition home or self-care (01) ==
LOC: JD.ED 19:07
DX: S80.11XA Contusion of right lower leg, initial encounter (principal); E03.9 Hypothyroidism, unspecified; F17.210 Nicotine dependence, cigarettes, uncomplicated; Z88.8 Allergy status to other drugs, medicaments and biological substances; Y92.009 Unspecified place in unspecified non-institutional (private) residence as the place of occurrence of the external cause
CPT/HCPCS: 73590-26-RT; 73590-RT; 93971-26-RT; 93971-RT; 99282; 99284

== ENCOUNTER 2024-08-23 19:39 | Emergency (ER) | payer MEDICAID ==
[2024-08-23] MEDS: Cyclobenzaprine 10 MG Tab PO ONE (20:59)
[2024-08-23] MEDS: Naproxen 500 MG Tab PO ONE (20:59)
[2024-08-23] MEDS: Acetaminophen/HYDROcodone 325-5 MG Tab PO ONE (20:59)
[2024-08-23 21:03] VITALS: BP 125/69; PULSE 69
== END 2024-08-23 21:03 | disposition home or self-care (01) ==
LOC: JD.ED 19:39
DX: M54.50 Low back pain, unspecified (principal); E03.9 Hypothyroidism, unspecified; Z96.659 Presence of unspecified artificial knee joint; Z88.8 Allergy status to other drugs, medicaments and biological substances; Z79.890 Hormone replacement therapy; Z79.899 Other long term (current) drug therapy
CPT/HCPCS: 72100; 99283; A9270

== ENCOUNTER 2024-08-28 17:17 | Emergency (ER) | payer MEDICAID ==
[2024-08-28 17:39] VITALS: BP 132/81; PULSE 81
[2024-08-28 18:51] LABS: APPEARANCE,URINE CLEAR (Clear); BILIRUBIN,URINE NEGATIVE (Negative); COLOR,URINE YELLOW (Yellow); GLUCOSE,URINE TRACE (Negative); KETONES,URINE NEGATIVE (Negative); LEUKOCYTE ESTERASE,URINE NEGATIVE (Negative); NITRITE,URINE NEGATIVE (Negative); OCCULT BLOOD,URINE TRACE-INTACT (Negative); PROTEIN,URINE NEGATIVE (Negative); UROBILINOGEN,URINE 0.2 (0.2-1.0)
[2024-08-28 18:55] LABS: BASOPHILS PERCENT AUTO 0.2 % (0.0-1.0); HEMATOCRIT 41.6 % (42.0-52.0); IMMATURE GRAN ABSOLUTE AUTO 0.26 K/mm3 (0.00-0.05); LYMPHOCYTES ABSOLUTE AUTO 1.2 K/mm3 (1.0-4.8); LYMPHOCYTES PERCENT AUTO 9.1 % (24.0-44.0); MEAN CORPUSCULAR HEMOGLOBIN 31.3 pg (28.0-32.0); MEAN CORPUSCULAR HGB CONC 33.7 g/dl (32.0-36.0); MEAN CORPUSCULAR VOLUME 93.1 fl (83.0-99.0); MEAN PLATELET VOLUME 9.5 fl (9.4-12.4); MONOCYTES ABSOLUTE AUTO 0.5 K/mm3 (0.0-0.8); MONOCYTES PERCENT AUTO 4.2 % (0.0-8.0); NEUTROPHILS PERCENT AUTO 84.5 % (41.0-71.0); PLATELET COUNT,PLT 279 K/mm3 (150-400); RED BLOOD CELL COUNT 4.47 M/mm3 (4.52-5.90); WHITE BLOOD CELL COUNT,WBC 13.01 K/mm3 (3.9-11.3)
[2024-08-28] MEDS ORDERED: Sodium Chloride 0.9% 10 ML Syringe FLUSH PRN (18:55)
[2024-08-28 19:07] LABS: BACTERIA,URINE FEW /hpf (FEW); EPITHELIAL CELLS,URINE 0-5 /hpf (0-5); MUCUS,URINE FEW /hpf (FEW); RBC,URINE 0-5 /hpf (0-5); WBC,URINE 0-5 /hpf (0-5)
[2024-08-28] MEDS: Iopamidol 612 MG/ML 100 ML Bottle IVPUSH ONE (19:15)
[2024-08-28] MEDS: Sodium Chloride 0.9% 10 ML Syringe FLUSH PRN (19:15)
[2024-08-28 19:19] LABS: A/G RATIO 0.9 (1-2); ALBUMIN 3.8 g/dl (3.4-5.0); ANION GAP 12.4 (5-15); BILIRUBIN TOTAL 0.3 mg/dL (0.2-1.0); BUN/CREATININE RATIO 19.1 (14-18); CALCIUM 9.3 mg/dL (8.5-10.1); CREATININE 1.1 mg/dL (0.7-1.3); EST CRCL DRUG DOSING (CG) 96.44 mL/min; POTASSIUM,K 4.4 mEq/L (3.5-5.1); PROTEIN TOTAL,TP 7.9 g/dl (6.4-8.2)
== END 2024-08-28 21:14 | disposition left against medical advice (07) ==
LOC: JD.ED 17:17
DX: K56.7 Ileus, unspecified (principal); E03.9 Hypothyroidism, unspecified; Z87.891 Personal history of nicotine dependence; Z88.8 Allergy status to other drugs, medicaments and biological substances; Z79.890 Hormone replacement therapy; Z79.899 Other long term (current) drug therapy
CPT/HCPCS: 36415; 74177; 80053; 81001; 83605; 85025; 99284; Q9967; 99283

== ENCOUNTER 2024-08-30 15:17 | Emergency (ER) | payer MEDICAID ==
[2024-08-30 15:43] VITALS: BP 136/92; PULSE 87
[2024-08-30 16:06] LABS: BASOPHILS ABSOLUTE AUTO 0.1 K/mm3 (0.0-0.2); BASOPHILS PERCENT AUTO 1.1 % (0.0-1.0); EOSINOPHILS ABSOLUTE AUTO 0.2 K/mm3 (0.0-0.4); EOSINOPHILS PERCENT AUTO 1.5 % (0.0-6.0); HEMATOCRIT 43.2 % (42.0-52.0); HEMOGLOBIN 14.7 gm/dl (14.0-18.0); IMMATURE GRAN ABSOLUTE AUTO 0.25 K/mm3 (0.00-0.05); IMMATURE GRAN PERCENT AUTO 2.1 % (0.0-0.4); LYMPHOCYTES ABSOLUTE AUTO 2.2 K/mm3 (1.0-4.8); LYMPHOCYTES PERCENT AUTO 18.5 % (24.0-44.0); MEAN CORPUSCULAR HEMOGLOBIN 31.3 pg (28.0-32.0); MEAN CORPUSCULAR VOLUME 91.9 fl (83.0-99.0); MEAN PLATELET VOLUME 9.1 fl (9.4-12.4); MONOCYTES ABSOLUTE AUTO 0.8 K/mm3 (0.0-0.8); MONOCYTES PERCENT AUTO 6.8 % (0.0-8.0); NEUTROPHILS ABSOLUTE AUTO 8.4 K/mm3 (1.8-7.7); PLATELET COUNT,PLT 291 K/mm3 (150-400); WHITE BLOOD CELL COUNT,WBC 11.93 K/mm3 (3.9-11.3)
[2024-08-30 16:17] LABS: APPEARANCE,URINE CLEAR (Clear); BILIRUBIN,URINE NEGATIVE (Negative); COLOR,URINE YELLOW (Yellow); GLUCOSE,URINE NEGATIVE (Negative); KETONES,URINE NEGATIVE (Negative); LEUKOCYTE ESTERASE,URINE NEGATIVE (Negative); NITRITE,URINE NEGATIVE (Negative); OCCULT BLOOD,URINE NEGATIVE (Negative); PROTEIN,URINE NEGATIVE (Negative); UROBILINOGEN,URINE 0.2 (0.2-1.0)
[2024-08-30 16:31] LABS: ALBUMIN 3.7 g/dl (3.4-5.0); BILIRUBIN TOTAL 0.4 mg/dL (0.2-1.0); BUN/CREATININE RATIO 14.5 (14-18); C-REACTIVE PROTEIN 0.55 mg/dL (<0.30); CALCIUM 9.1 mg/dL (8.5-10.1); CREATININE 1.1 mg/dL (0.7-1.3); EST CRCL DRUG DOSING (CG) 96.44 mL/min; PROTEIN TOTAL,TP 7.5 g/dl (6.4-8.2)
[2024-08-30 16:36] LABS: LACTIC ACID 0.7 mmol/L (0.4-2.0)
[2024-08-30] MEDS: Tamsulosin 0.4 MG Cap.ER PO ONE (17:05)
[2024-08-30] MEDS: Ketorolac 60 MG/2 ML SDV IM ONE (18:54)
== END 2024-08-30 20:30 | disposition home or self-care (01) ==
LOC: JD.ED 15:17
DX: N20.0 Calculus of kidney (principal); E03.9 Hypothyroidism, unspecified; Z79.899 Other long term (current) drug therapy; Z88.8 Allergy status to other drugs, medicaments and biological substances
CPT/HCPCS: 36415; 74018; 80053; 81003; 83605; 85025; 86140; 96372; 99283; A9270; J1885; 99284

== ENCOUNTER 2025-02-12 23:33 | Emergency (ER) | payer MEDICAID ==
[2025-02-13] MEDS: Ketorolac 60 MG/2 ML SDV IM ONE (01:17)
[2025-02-13 02:33] VITALS: BP 114/67; PULSE 58
== END 2025-02-13 02:30 | disposition home or self-care (01) ==
LOC: JD.ED 23:33
DX: M25.562 Pain in left knee (principal); E03.9 Hypothyroidism, unspecified; F17.210 Nicotine dependence, cigarettes, uncomplicated; Z88.8 Allergy status to other drugs, medicaments and biological substances; Z79.890 Hormone replacement therapy; Z79.899 Other long term (current) drug therapy
CPT/HCPCS: 73562; 96372; 99283; J1885; 99284

== ENCOUNTER 2025-02-28 21:31 | Emergency (ER) | payer MEDICAID ==
[2025-02-28] MEDS ORDERED: Sodium Chloride 0.9% 10 ML Syringe FLUSH PRN (21:54)
[2025-02-28 22:07] LABS: APPEARANCE,URINE CLEAR (Clear); GLUCOSE,URINE NEGATIVE (Negative); OCCULT BLOOD,URINE TRACE-INTACT (Negative)
[2025-02-28 22:08] LABS: BASOPHILS ABSOLUTE AUTO 0.2 K/mm3 (0.0-0.2); BASOPHILS PERCENT AUTO 1.4 % (0.0-1.0); EOSINOPHILS ABSOLUTE AUTO 0.3 K/mm3 (0.0-0.4); EOSINOPHILS PERCENT AUTO 2.7 % (0.0-6.0); IMMATURE GRAN ABSOLUTE AUTO 0.03 K/mm3 (0.00-0.05); IMMATURE GRAN PERCENT AUTO 0.3 % (0.0-0.4); LYMPHOCYTES ABSOLUTE AUTO 3.2 K/mm3 (1.0-4.8); LYMPHOCYTES PERCENT AUTO 27.0 % (24.0-44.0); MEAN PLATELET VOLUME 9.7 fl (9.4-12.4); MONOCYTES ABSOLUTE AUTO 0.7 K/mm3 (0.0-0.8); MONOCYTES PERCENT AUTO 5.8 % (0.0-8.0); NEUTROPHILS ABSOLUTE AUTO 7.5 K/mm3 (1.8-7.7); NEUTROPHILS PERCENT AUTO 62.8 % (41.0-71.0); NRBC ABSOLUTE 0.00 (0.00-0.02); NRBC PERCENT 0.0 % (0.0-0.2); PLATELET COUNT,PLT 276 K/mm3 (150-400); RED BLOOD CELL COUNT 4.86 M/mm3 (4.52-5.90); WHITE BLOOD CELL COUNT,WBC 11.97 K/mm3 (3.9-11.3)
[2025-02-28 22:11] VITALS: BP 121/96; PULSE 71
[2025-02-28 22:19] LABS: EPITHELIAL CELLS,URINE 0-5 /hpf (0-5)
[2025-02-28 22:28] LABS: A/G RATIO 1.2 (1-2); ALANINE AMINOTRANSFERASE,ALT 22.0 U/L (16-63); ASPARTATE AMNIOTRANSFERASE,AST 9.0 U/L (15-37); BILIRUBIN TOTAL 0.3 mg/dL (0.2-1.0); BLOOD UREA NITROGEN,BUN 31.0 mg/dL (7-18); CARBON DIOXIDE,CO2 27.0 mEq/L (21-32); CHLORIDE,CL 106.0 mEq/L (98-107); CREATININE 1.1 mg/dL (0.7-1.3); EST CRCL DRUG DOSING (CG) 96.44 mL/min; ESTIMATED GFR 81.0 mL/min (>60); GLUCOSE RANDOM 100.0 mg/dL (70-99); POTASSIUM,K 3.8 mEq/L (3.5-5.1); PROTEIN TOTAL,TP 7.7 g/dl (6.4-8.2); SODIUM,NA 143.0 mEq/L (136-145)
[2025-02-28] MEDS: Sodium Chloride 0.9% 10 ML Syringe FLUSH PRN (22:31)
[2025-02-28] MEDS: Iopamidol 612 MG/ML 100 ML Bottle IVPUSH ONE (22:31)
[2025-02-28] MEDS: Ketorolac 30 MG/ML SDV IVPUSH ONE (22:40)
== END 2025-02-28 23:28 | disposition home or self-care (01) ==
LOC: JD.ED 21:31
DX: N20.0 Calculus of kidney (principal); E03.9 Hypothyroidism, unspecified; Z79.899 Other long term (current) drug therapy; Z79.890 Hormone replacement therapy; Z88.8 Allergy status to other drugs, medicaments and biological substances
CPT/HCPCS: 36415; 74177; 80053; 81001; 85025; 96361; 96374; 99284; J1885; J7030; Q9967; 99283

== ENCOUNTER 2025-05-10 13:53 | Emergency (ER) | payer MEDICAID ==
[2025-05-10] MEDS ORDERED: Sodium Chloride 0.9% 10 ML Syringe FLUSH PRN (14:18)
[2025-05-10 14:36] LABS: BASOPHILS ABSOLUTE AUTO 0.1 K/mm3 (0.0-0.2); BASOPHILS PERCENT AUTO 1.4 % (0.0-1.0); EOSINOPHILS ABSOLUTE AUTO 0.2 K/mm3 (0.0-0.4); EOSINOPHILS PERCENT AUTO 2.7 % (0.0-6.0); IMMATURE GRAN ABSOLUTE AUTO 0.01 K/mm3 (0.00-0.05); IMMATURE GRAN PERCENT AUTO 0.1 % (0.0-0.4); LYMPHOCYTES ABSOLUTE AUTO 1.7 K/mm3 (1.0-4.8); LYMPHOCYTES PERCENT AUTO 18.9 % (24.0-44.0); MEAN PLATELET VOLUME 9.4 fl (9.4-12.4); MONOCYTES ABSOLUTE AUTO 0.5 K/mm3 (0.0-0.8); MONOCYTES PERCENT AUTO 6.0 % (0.0-8.0); NEUTROPHILS ABSOLUTE AUTO 6.4 K/mm3 (1.8-7.7); NEUTROPHILS PERCENT AUTO 70.9 % (41.0-71.0); NRBC ABSOLUTE 0.00 (0.00-0.02); NRBC PERCENT 0.0 % (0.0-0.2); PLATELET COUNT,PLT 281 K/mm3 (150-400); RED BLOOD CELL COUNT 5.10 M/mm3 (4.52-5.90); WHITE BLOOD CELL COUNT,WBC 8.99 K/mm3 (3.9-11.3)
[2025-05-10] MEDS: Ondansetron 4 MG/2 ML SDV IVPUSH ONE (15:07)
[2025-05-10] MEDS: Ketorolac 30 MG/ML SDV IVPUSH ONE (15:08)
[2025-05-10 15:16] LABS: A/G RATIO 1.1 (1-2); ALANINE AMINOTRANSFERASE,ALT 27.0 U/L (16-63); ASPARTATE AMNIOTRANSFERASE,AST 22.0 U/L (15-37); BILIRUBIN TOTAL 0.5 mg/dL (0.2-1.0); BLOOD UREA NITROGEN,BUN 24.0 mg/dL (7-18); CARBON DIOXIDE,CO2 26.0 mEq/L (21-32); CHLORIDE,CL 103.0 mEq/L (98-107); CREATININE 1.0 mg/dL (0.7-1.3); EST CRCL DRUG DOSING (CG) 106.09 mL/min; ESTIMATED GFR 91.0 mL/min (>60); GLUCOSE RANDOM 100.0 mg/dL (70-99); POTASSIUM,K 4.1 mEq/L (3.5-5.1); PROTEIN TOTAL,TP 7.7 g/dl (6.4-8.2); SODIUM,NA 138.0 mEq/L (136-145)
[2025-05-10 17:04] VITALS: BP 98/81; PULSE 54
== END 2025-05-10 17:07 | disposition home or self-care (01) ==
LOC: JD.ED 13:53
DX: M54.50 Low back pain, unspecified (principal); E03.9 Hypothyroidism, unspecified; M19.90 Unspecified osteoarthritis, unspecified site; Z79.899 Other long term (current) drug therapy; Z88.8 Allergy status to other drugs, medicaments and biological substances
CPT/HCPCS: 36415; 74176; 80053; 83690; 85025; 96361; 96374; 96375; 99284; J1885; J2405; J7030; J1171

== ENCOUNTER 2025-05-25 13:26 | Emergency (ER) | payer MEDICAID ==
[2025-05-25] MEDS ORDERED: Sodium Chloride 0.9% 10 ML Syringe FLUSH PRN (16:29)
[2025-05-25 16:36] LABS: BASOPHILS ABSOLUTE AUTO 0.2 K/mm3 (0.0-0.2); BASOPHILS PERCENT AUTO 1.6 % (0.0-1.0); EOSINOPHILS ABSOLUTE AUTO 0.1 K/mm3 (0.0-0.4); EOSINOPHILS PERCENT AUTO 1.3 % (0.0-6.0); IMMATURE GRAN ABSOLUTE AUTO 0.07 K/mm3 (0.00-0.05); IMMATURE GRAN PERCENT AUTO 0.7 % (0.0-0.4); LYMPHOCYTES ABSOLUTE AUTO 2.8 K/mm3 (1.0-4.8); LYMPHOCYTES PERCENT AUTO 28.6 % (24.0-44.0); MEAN PLATELET VOLUME 9.5 fl (9.4-12.4); MONOCYTES ABSOLUTE AUTO 0.7 K/mm3 (0.0-0.8); MONOCYTES PERCENT AUTO 7.6 % (0.0-8.0); NEUTROPHILS ABSOLUTE AUTO 5.8 K/mm3 (1.8-7.7); NEUTROPHILS PERCENT AUTO 60.2 % (41.0-71.0); NRBC ABSOLUTE 0.00 (0.00-0.02); NRBC PERCENT 0.0 % (0.0-0.2); PLATELET COUNT,PLT 280 K/mm3 (150-400); RED BLOOD CELL COUNT 5.14 M/mm3 (4.52-5.90); WHITE BLOOD CELL COUNT,WBC 9.66 K/mm3 (3.9-11.3)
[2025-05-25 16:46] LABS: APPEARANCE,URINE CLEAR (Clear); GLUCOSE,URINE NEGATIVE (Negative); OCCULT BLOOD,URINE NEGATIVE (Negative)
[2025-05-25 16:56] LABS: EPITHELIAL CELLS,URINE 0-5 /hpf (0-5)
[2025-05-25 16:57] LABS: A/G RATIO 1.1 (1-2); ALANINE AMINOTRANSFERASE,ALT 23.0 U/L (16-63); ASPARTATE AMNIOTRANSFERASE,AST 20.0 U/L (15-37); BILIRUBIN TOTAL 0.5 mg/dL (0.2-1.0); BLOOD UREA NITROGEN,BUN 29.0 mg/dL (7-18); CARBON DIOXIDE,CO2 32.0 mEq/L (21-32); CHLORIDE,CL 103.0 mEq/L (98-107); CREATININE 1.0 mg/dL (0.7-1.3); EST CRCL DRUG DOSING (CG) 106.09 mL/min; ESTIMATED GFR 91.0 mL/min (>60); GLUCOSE RANDOM 93.0 mg/dL (70-99); POTASSIUM,K 4.0 mEq/L (3.5-5.1); PROTEIN TOTAL,TP 7.7 g/dl (6.4-8.2); SODIUM,NA 139.0 mEq/L (136-145)
[2025-05-25 17:02] LABS: LACTIC ACID 0.7 mmol/L (0.4-2.0)
[2025-05-25 18:28] VITALS: BP 108/74; PULSE 62
== END 2025-05-25 18:20 | disposition home or self-care (01) ==
LOC: JD.ED 13:26
DX: K92.1 Melena (principal); E03.9 Hypothyroidism, unspecified; Z88.8 Allergy status to other drugs, medicaments and biological substances; Z79.890 Hormone replacement therapy; Z79.899 Other long term (current) drug therapy
CPT/HCPCS: 36415; 80053; 81001; 83605; 83690; 85025; 86850; 86900; 86901; 99284